=== PATIENT | male | born 1965 | race Caucasian/White ===

== ENCOUNTER 2022-08-31 13:23 | Outpatient (CLI) | payer BC, SELFPAY ==
[2022-08-31 21:32] LABS: Albumin* 4.4 g/dL (3.3-5.0); Chloride* 104 mmol/L (96-114); Potassium* 3.9 mmol/L (3.6-5.1); Sodium* 142 mmol/L (135-149)
[2022-08-31 21:34] LABS: Cholesterol* 194 mg/dL (90-199); Creatinine* 1.6 mg/dL (0.5-1.5); Estimated Glomerular Filt Rate 49 ml/min
[2022-08-31 21:35] LABS: Alanine Aminotransferase* 21 U/L (4-50); Alkaline Phosphatase* 105 U/L (40-150); Aspartate Amino Transferase* 25 U/L (12-35); Bilirubin Total* 0.8 mg/dL (0.1-1.5); Blood Urea Nitrogen* 22 mg/dL (7-30); Carbon Dioxide* 26 mmol/L (20-32); Glucose* 101 mg/dL (60-115); Total Protein* 6.9 g/dL (6.0-8.3); Triglycerides* 253 mg/dL (40-149)
[2022-08-31 21:36] LABS: Calcium* 8.2 mg/dL (8.4-10.6); HDL Cholesterol* 38 mg/dL (>=40); LDL Cholesterol Calculated 105 mg/dL (<100)
[2022-08-31 21:48] LABS: Microalbumin Urine 11 mg/dL
[2022-08-31 22:05] LABS: PSA Screen* 3.12 ng/mL (0.10-4.00)
[2022-09-01 04:16] LABS: Creatinine Urine 562.9 mg/dL; Microalbumin Creatinine Ratio 10 mg/g (0-30)
== END 2022-08-31 13:24 | disposition home or self-care (01) ==
PROVIDERS: PCP Family Medicine; Visit Provider Family Medicine
DX: Z00.00 Encounter for general adult medical examination without abnormal findings (principal); I10 Essential (primary) hypertension; R53.83 Other fatigue; E83.119 Hemochromatosis, unspecified; N40.0 Benign prostatic hyperplasia without lower urinary tract symptoms; N52.9 Male erectile dysfunction, unspecified
CPT/HCPCS: 80053; 80061; 82043; 82570; 84153; 87086

== ENCOUNTER 2023-02-18 08:25 | Outpatient (CLI) | payer BC, SELFPAY | END 2023-02-18 08:26 | disposition home or self-care (01) | LOC: NFLDREF 02-20 05:50 | PROVIDERS: PCP Family Medicine; Referring Provider Family Medicine; Visit Provider Family Medicine | DX: E83.119 Hemochromatosis, unspecified (principal); N40.0 Benign prostatic hyperplasia without lower urinary tract symptoms; N52.9 Male erectile dysfunction, unspecified; R53.83 Other fatigue | CPT/HCPCS: 82533; 83001; 83002; 84146; 84403 ==

== ENCOUNTER 2023-03-02 12:09 | Emergency (ER) | payer BC, SELFPAY ==
[2023-03-02] VITALS (34 sets, daily range): BP systolic 103–158; BP diastolic 63–95; PULSE 52–66; RESP 18; TEMP 36; O2SAT 92–97; BMI 34.4
--- NOTE | 2023-03-02 13:03 | ED_ITS ---
HPI - General Adult General Chief complaint: Weakness Stated complaint: Heart issues, disoriented Time Seen by Provider: 03/02/23 12:38 History of Present Illness HPI narrative: This 57-year-old male comes in from clinic. He presented to the [facility] because of extreme fatigue and generalized weakness. 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 This is a typical workday for him. He was fatigued at the end of the day and this continues into today. He did not have any nausea, vomiting Related Data Home Medications Medication Instructions Recorded Confirmed hydroxyzine pamoate 25 mg capsule 25 mg PO QID 03/02/23 03/02/23 Previous Rx's Medication Instructions Recorded duloxetine 60 mg capsule,delayed 60 mg PO QDAY #90 caps 09/01/22 release gabapentin 300 mg capsule 300 mg PO QID PRN neuropathic pain 09/01/22 #360 caps lisinopril 40 mg tablet 40 mg PO QDAY #90 tabs 09/01/22 metoprolol succinate 100 mg 100 mg PO QDAY #90 tabs 09/01/22 tablet,extended release 24 hr amlodipine 10 mg tablet 10 mg PO QDAY #90 tabs 02/17/23 testosterone cypionate 100 mg/mL 100 mg IM Q2W #10 mL 02/24/23 intramuscular oil (Depo-Testosterone) Allergies Allergy/AdvReac Type Severity Reaction Status Date / Time No Known Allergies Allergy Unknown Verified 03/02/23 10:15 [facility] Medical History (Updated 03/02/23 @ 17:45 by Kevin Crawford MD) Confusion ?R41.0 - Disorientation, unspecified (ICD-10) Diverticulosis of intestine ?K57.90 - Diverticulosis of intestine, part unspecified, without perforation or abscess without bleeding (ICD-10) Exposure to severe acute respiratory syndrome coronavirus 2 (SARS-CoV-2) ?Z20.822 - Contact with and (suspected) exposure to COVID-19 (ICD-10) History of fracture (2004) ?Z87.81 - Personal history of (healed) traumatic fracture (ICD-10) Lightheaded ?R42 - Dizziness and giddiness (ICD-10) Methicillin resistant Staphylococcus aureus infection (07/16/10) ?A49.02 - Methicillin resistant Staphylococcus aureus infection, unspecified site (ICD-10) Surgical History (Updated 05/05/22 @ 12:28 by Nam Lam) History of arthroscopy (1998) ?Z98.890 - Other specified postprocedural states (ICD-10) History of colonoscopy ?Z98.890 - Other specified postprocedural states (ICD-10) History of endoscopy (03/2009) ?Z98.890 - Other specified postprocedural states (ICD-10) Status post cholecystectomy ?Z90.49 - Acquired absence of other specified parts of digestive tract (ICD- 10) Social History Smoking Status: Current every day smoker What tobacco products do you use: cigarettes Smoking packs per day: 1 Smoking cigarettes per day: 20.0 Years smoked: 47 Smoking pack-years: 47.00 Do you use any of these nicotine containing products: None Second hand tobacco smoke exposure: No How often do you have a drink containing alcohol: monthly or less How many standard drinks containing alcohol do you have on a typical day: 1 or 2 How often do you have six or more drinks on one occasion: Less than monthly AUDIT-C Alcohol total score: 2 Non-prescribed substance use: denies use Little interest or pleasure in doing things: not at all Feeling down, depressed, or hopeless: not at all service: No Exam Const: Vital Signs, click to edit/add: Vital Signs - 24 hr 03/02/23 12:19 03/02/23 12:32 03/02/23 12:33 Temperature 96.8 F L Pulse Rate 61 65 Pulse Rate [Pulse Oximeter] 61 Respiratory Rate 18 Blood Pressure 144/94 H Blood Pressure [Le ft Upper Arm] 158/91 H Pulse Oximetry 97 96 95 Oxygen Delivery Me thod Room Air 03/02/23 12:45 03/02/23 13:00 03/02/23 13:02 Temperature Pulse Rate 60 62 66 Pulse Rate [Pulse Oximeter] Respiratory Rate Blood Pressure 141/95 H Blood Pressure [Le ft Upper Arm] Pulse Oximetry 94 96 96 Oxygen Delivery Me thod 03/02/23 13:15 03/02/23 13:30 03/02/23 13:32 Temperature Pulse Rate 63 61 57 L Pulse Rate [Pulse Oximeter] Respiratory Rate Blood Pressure 113/69 Blood Pressure [Le ft Upper Arm] Pulse Oximetry 95 95 93 Oxygen Delivery Me thod 03/02/23 13:33 03/02/23 13:45 03/02/23 14:00 Temperature Pulse Rate 59 L 56 L 56 L Pulse Rate [Pulse Oximeter] Respiratory Rate Blood Pressure Blood Pressure [Le ft Upper Arm] Pulse Oximetry 93 92 93 Oxygen Delivery Me thod 03/02/23 14:01 03/02/23 14:15 03/02/23 14:30 Temperature Pulse Rate 56 L 57 L 59 L Pulse Rate [Pulse Oximeter] Respiratory Rate Blood Pressure 103/73 Blood Pressure [Le ft Upper Arm] Pulse Oximetry 92 92 93 Oxygen Delivery Me thod 03/02/23 14:32 03/02/23 14:33 03/02/23 14:45 Temperature Pulse Rate 55 L 53 L 53 L Pulse Rate [Pulse Oximeter] Respiratory Rate Blood Pressure 123/76 Blood Pressure [Le ft Upper Arm] Pulse Oximetry 92 94 94 Oxygen Delivery Me thod 03/02/23 15:00 03/02/23 15:02 03/02/23 15:15 Temperature Pulse Rate 63 60 56 L Pulse Rate [Pulse Oximeter] Respiratory Rate Blood Pressure 114/76 Blood Pressure [Le ft Upper Arm] Pulse Oximetry 95 95 95 Oxygen Delivery Me thod 03/02/23 15:30 03/02/23 15:31 03/02/23 15:45 Temperature Pulse Rate 63 58 L 64 Pulse Rate [Pulse Oximeter] Respiratory Rate Blood Pressure 120/63 Blood Pressure [Le ft Upper Arm] Pulse Oximetry 97 96 96 Oxygen Delivery Me thod 03/02/23 16:00 03/02/23 16:02 03/02/23 16:15 Temperature Pulse Rate 61 59 L 54 L Pulse Rate [Pulse Oximeter] Respiratory Rate Blood Pressure 136/87 Blood Pressure [Le ft Upper Arm] Pulse Oximetry 96 95 95 Oxygen Delivery Me thod 03/02/23 16:30 03/02/23 16:32 03/02/23 16:33 Temperature Pulse Rate 52 L 52 L 53 L Pulse Rate [Pulse Oximeter] Respiratory Rate Blood Pressure 127/80 Blood Pressure [Le ft Upper Arm] Pulse Oximetry 95 92 94 Oxygen Delivery Me thod 03/02/23 16:45 03/02/23 17:00 03/02/23 17:02 Temperature Pulse Rate 53 L 59 L 55 L Pulse Rate [Pulse Oximeter] Respiratory Rate Blood Pressure 139/82 Blood Pressure [Le ft Upper Arm] Pulse Oximetry 95 96 95 Oxygen Delivery Me thod 03/02/23 17:15 Temperature Pulse Rate 60 Pulse Rate [Pulse Oximeter] Respiratory Rate Blood Pressure Blood Pressure [Le ft Upper Arm] Pulse Oximetry 96 Oxygen Delivery Me thod Course Vital Signs Vital signs: Initial Vital Signs Temperature 96.8 F L 03/02/23 12:19 Temperature Source Temporal Artery Scan 03/02/23 12:19 Pulse Rate 61 03/02/23 12:19 Pulse Rhythm Regular 03/02/23 12:19 Respiratory Rate 18 03/02/23 12:19 Blood Pressure 158/91 H 03/02/23 12:19 Blood Pressure Mean 113 H 03/02/23 12:19 Blood Pressure Position Supine 03/02/23 12:19 Pulse Oximetry 97 03/02/23 12:19 Oxygen Delivery Method Room Air 03/02/23 12:19 Vital Signs Temperature 96.8 F L 03/02/23 12:19 Pulse Rate 61 03/02/23 12:19 Respiratory Rate 18 03/02/23 12:19 Blood Pressure 158/91 H 03/02/23 12:19 Pulse Oximetry 97 03/02/23 12:19 Oxygen Delivery Method Room Air 03/02/23 12:19 Temperature 96.8 F L 03/02/23 12:19 Pulse Rate 60 03/02/23 17:15 Respiratory Rate 18 03/02/23 12:19 Blood Pressure 139/82 03/02/23 17:02 Pulse Oximetry 96 03/02/23 17:15 Oxygen Delivery Method Room Air 03/02/23 12:19 Medical Decision Making MDM Narrative Medical decision making narrative: This 57-year-old male comes in for evaluation stating that he feels especially tired since last night. He did not report any chest pain. He does state a history of coronary artery disease and had an angiogram about 6 or 8 years ago. There were no stents placed but he states that there was some narrowing of his coronary arteries that were ballooned apparently. He had distinct chest pain at that time but denies having any chest pain related to exertion or otherwise currently. He states that he is continuing to smoke but has been trying to quit and has been cutting back as best as he can. 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 This is vigorous physical labor and he states that he has been tolerating this until last evening when he felt especially tired. He arrives here with EKG that shows no specific abnormalities. His troponin returns at an indeterminate level at 0.06. A repeat troponin is acquired about 3 hours later and is similar at 0.07. Meanwhile the patient has not had any chest pain and in fact is stating that he feels quite a bit better as he is rested here during these several hours present here. Repeat EKG also shows no sign of ST or T-wave abnormalities specifically. I did discuss options going forward including observation in the hospital and outpatient testing such as stress testing or echocardiogram. The patient states that he wishes to return home and does have a follow-up appointment for a CT scan of his chest tomorrow. I stated that he should consider a stress test and have this arranged at that appointment tomorrow. Most likely his troponin in these intermediate level range is not indicating a acute coronary event as his symptoms began last evening. More likely this is some demand ischemia. I did describe signs and symptoms that would indicate a need for return and re- evaluation. Lab Data Labs: Lab Results 03/02/23 03/02/23 Range/Units 13:20 15:35 Troponin I 0.06 H* 0.07 H* (0.01-0.04) ng/mL NT-Pro-B Natriuret Pep 567 pg/mL ECG Data Attestation: I personally reviewed and interpreted this ECG as follows: Interpretation: Normal sinus rhythm. Rate is 62 beats per minute. There are no ST or T-wave abnormalities. Possible Q-waves in inferior leads. Discharge Plan Discharge Clinical Impression: Fatigue Patient Disposition: Home, Self-Care Condition: Improved Additional Instructions: Continue current plans. Follow up with MD tomorrow as scheduled. Smoking cessation is recommended. Take a baby aspirin daily. Return if worsening. Prescriptions: No Action amlodipine 10 mg tablet 10 mg PO QDAY Qty: 90 1RF hydroxyzine pamoate 25 mg capsule 25 mg PO QID duloxetine 60 mg capsule,delayed release(DR/EC) 60 mg PO QDAY Qty: 90 3RF gabapentin 300 mg capsule 300 mg PO QID PRN (Reason: neuropathic pain) Qty: 360 3RF lisinopril 40 mg tablet 40 mg PO QDAY Qty: 90 3RF metoprolol succinate 100 mg tablet extended release 24 hr 100 mg PO QDAY Qty: 90 3RF testosterone cypionate [Depo-Testosterone] 100 mg/mL oil 100 mg IM Q2W Qty: 10 0RF Follow Up/Referrals: Ele Kim DO [Primary Care Provider] - Stand Alone Forms: [employer] Info Instructions
[2023-03-02 14:15] LABS: NT Pro B Type NatriureticPept* 567 pg/mL; Troponin I* 0.06 ng/mL (0.01-0.04)
--- NOTE | 2023-03-02 15:54 | ED.NURSE ---
Pt c/o discomfort on L arm at IV site. IV flushed, patent. Pt c/o continued pain at IV site, entry writer dc'd IV, catheter intact. Manager Metrology observed that orange tourniquet band was still in place on pt L arm above IV site, underneath gown sleeve. Tourniquet band removed by entry writer. CMS of left arm and left hand assessed, CMS intact. Pulse oximeter was on left hand throughout stay, readings have been normal. MD Crawford notified of tourniquet removal.
[2023-03-02 17:00] LABS: Troponin I* 0.07 ng/mL (0.01-0.04)
== END 2023-03-02 18:00 | disposition home or self-care (01) ==
PROVIDERS: Emergency Provider Emergency Medicine Emergency Medical Services; PCP Family Medicine
DX: R53.83 Other fatigue (principal)
CPT/HCPCS: 36415; 83880; 84484; 93005; 99284

== ENCOUNTER 2023-03-03 10:47 | Outpatient (CLI) | payer BC, SELFPAY | END 2023-03-03 10:48 | disposition home or self-care (01) | PROVIDERS: PCP Family Medicine; Visit Provider Family Medicine | DX: R53.83 Other fatigue (principal); R42 Dizziness and giddiness; E29.1 Testicular hypofunction; N18.30 Chronic kidney disease, stage 3 unspecified | CPT/HCPCS: 84145 ==

== ENCOUNTER 2023-03-04 15:49 | Outpatient (CLI) | payer BC, SELFPAY ==
--- NOTE | 2023-03-04 16:00 | CRLHL7_ITS ---
For Patients: As a result of the Century Cures Act, medical imaging exams and procedure reports are released immediately into your electronic medical record. You may view this report before your referring provider. If you have questions, please contact your health care provider. INDICATION: Fatigue. Hypertension. Cerebrovascular accident evaluation. TECHNIQUE: Noncontrast CT images acquired through the brain. COMPARISON: None. FINDINGS: The ventricles and sulci are within normal limits for patient age. No mass effect or midline shift. The silverman-white differentiation is maintained. No acute intracranial hemorrhage or pathologic extra-axial fluid collection. Scattered and patchy hypoattenuation in the supratentorial white matter is nonspecific, though most suggestive of [id number] chronic microvascular ischemic changes. Chronic lacunar infarction posterior medial right cerebellar hemisphere. Intracranial atherosclerotic calcifications in the carotid siphons and vertebral arteries. The globes are symmetric. The calvarium is intact. The visualized paranasal sinuses and mastoid air cells are clear. IMPRESSION: 1. No acute intracranial hemorrhage or mass effect. 2. Chronic lacunar infarction posterior right cerebellar hemisphere. 3. Scattered and patchy hypoattenuation in the supratentorial white matter is nonspecific, though most suggestive of [id number] chronic microvascular ischemic changes. Please note that all CT scans at this facility use dose modulation, iterative reconstruction, and/or weight-based dosing when appropriate to reduce radiation dose to as low as reasonably achievable. Dictated by Brando Michel MD @ 03/04/2023 4:42:26 PM (Electronically Signed)
--- NOTE | 2023-03-04 16:00 | CRLHL7_ITS ---
For Patients: As a result of the Century Cures Act, medical imaging exams and procedure reports are released immediately into your electronic medical record. You may view this report before your referring provider. If you have questions, please contact your health care provider. INDICATION: Lung cancer screening. History of smoking. High risk patient with greater than 37 pack-year smoking history. TECHNIQUE: Low-dose lung cancer screening non-contrast CT chest. Dose reduction techniques were used. COMPARISON: None. FINDINGS: NODULES: Noncalcified nodule measuring 3.9 millimeters, left lower lobe, series 10, image 89. LUNGS AND PLEURA: Normal. MEDIASTINUM: No adenopathy. Atherosclerotic changes in the aorta. CORONARY ARTERY CALCIFICATION: Severe coronary artery calcifications. LIMITED UPPER ABDOMEN: 1.5 cm benign right adrenal adenoma. Cystic change upper pole right kidney suspected. MUSCULOSKELETAL: Bilateral gynecomastia. IMPRESSION: 1. Negative for lung cancer screening purposes. 2. Probable cystic change upper pole right kidney. LUNG-RADS CATEGORY: 2: Benign. RADIOLOGIST RECOMMENDATION: Continue annual screening with low-dose CT chest in 12 months. Renal ultrasound recommended. Please note that all CT scans at this facility use dose modulation, iterative reconstruction, and/or weight-based dosing when appropriate to reduce radiation dose to as low as reasonably achievable. Dictated by Jatin Shaikh MD @ 03/06/2023 8:26:56 PM (Electronically Signed)
== END 2023-03-04 15:50 | disposition home or self-care (01) ==
LOC: CT 15:49
PROVIDERS: PCP Family Medicine; Visit Provider Family Medicine
DX: Z12.2 Encounter for screening for malignant neoplasm of respiratory organs (principal); Z87.891 Personal history of nicotine dependence; R53.83 Other fatigue; I63.9 Cerebral infarction, unspecified; R41.0 Disorientation, unspecified; R42 Dizziness and giddiness; I10 Essential (primary) hypertension
CPT/HCPCS: 70450; 71271

== ENCOUNTER 2023-11-09 13:48 | Emergency (ER) | payer BC, SELFPAY ==
[2023-11-09] VITALS (36 sets, daily range): BP systolic 143–184; BP diastolic 89–126; PULSE 64–98; RESP 16; TEMP 36.3; O2SAT 89–97; BMI 35.4
--- NOTE | 2023-11-09 14:35 | ED_ITS ---
HPI - General Adult General Chief complaint: Neuro Symptoms/Altered Deficit <Vitaliy Bartlett MD - Last Filed: 11/12/23 08:33> Stated complaint: dizzy, confusion, weak <Vitaliy Bartlett MD - Last Filed: 11/12/23 08:33> Time Seen by Provider: 11/09/23 14:24 <Vitaliy Bartlett MD - Last Filed: 11/12/23 08:33> History of Present Illness HPI narrative: [age] year old white male who has tried to quit smoking since the has had some side effects perhaps from nicotine withdrawal and the form of shakiness con of confusion dizziness he has had some upset stomach. He specifically denies chest pain breathing issue although he does state he has had chronic wheezing and breathing difficulty since he had COVID last couple months ago. He reports he has had a balloon angioplasty in the past, he reports he has had anxiety and depression, he is smoking up until the . He reports he has hemochromatosis in requesting some labs for that as well. He denies chest pain as mentioned does feel short of breath with exertion and he has had this for few weeks since his COVID. He still coughing some. He does feel he is making progress in his better. He denies leg swelling or edema. He has had some nausea as well and he has vomited once. He is asking for some Nicoderm patches as he has some called in from his doctor and I think that would be reasonable given that he has an EKG that shows normal sinus rhythm no acute ST T wave changes he does have some artifact present but I do not see any ischemic change. <Vitaily Bartlett MD - Last Filed: 11/12/23 08:33> Related Data Home medications: Previous Rx's Medication Instructions Recorded testosterone cypionate 100 mg/mL 100 mg IM Q2W #10 mL 03/23/23 intramuscular oil carvedilol 12.5 mg tablet 12.5 mg PO BID #180 tabs 07/07/23 syringe with needle, safety 3 mL #100 ea 07/27/23 22 gauge x 1 1/2 (BD Integra Syringe) syringe with needle, safety 3 mL #100 ea 07/27/23 22 gauge x 1 1/2 (BD Integra Syringe) amlodipine 10 mg tablet 10 mg PO DAILY #90 tabs 08/17/23 duloxetine 60 mg capsule,delayed 60 mg PO QDAY #90 caps 08/17/23 release lisinopril 40 mg tablet 40 mg PO QDAY #90 tabs 08/17/23 rosuvastatin 20 mg tablet 20 mg PO QPM #90 tabs 08/17/23 albuterol sulfate 90 mcg/actuation 1 inh inhalation QID PRN shortness 11/09/23 aerosol inhaler of breath or wheezing #8.5 grams nicotine 21 mg/24 hr daily 1 patch transdermal Q24H #28 ea 11/09/23 transdermal patch prednisone 20 mg tablet 40 mg (2 x 20 mg) PO DAILY 5 days 11/09/23 #10 tabs gabapentin 300 mg capsule 300 mg PO BID #180 caps 11/10/23 <Vitaliy Bartlett MD - Last Filed: 11/12/23 08:33> Allergies/adverse reactions: Allergies Allergy/AdvReac Type Severity Reaction Status Date / Time No Known Allergies Allergy Unknown Verified 11/09/23 18:47 <Vitaliy Bartlett MD - Last Filed: 11/12/23 08:33> Review of Systems Status of ROS: Reports: 6 or more systems reviewed and unremarkable except as noted in History and below <Vitaliy Bartlett MD - Last Filed: 11/12/23 08:33> [facility] Medical History: Medical History Confusion ?R41.0 - Disorientation, unspecified (ICD-10) Methicillin resistant Staphylococcus aureus infection (07/16/10) ?A49.02 - Methicillin resistant Staphylococcus aureus infection, unspecified site (ICD-10) History of fracture (2004) ?Z87.81 - Personal history of (healed) traumatic fracture (ICD-10) Exposure to severe acute respiratory syndrome coronavirus 2 (SARS-CoV-2) ?Z20.822 - Contact with and (suspected) exposure to COVID-19 (ICD-10) Diverticulosis of intestine ?K57.90 - Diverticulosis of intestine, part unspecified, without perforation or abscess without bleeding (ICD-10) <Vitaliy Bartlett MD - Last Filed: 11/12/23 08:33> Surgical History: Surgical History Status post cholecystectomy ?Z90.49 - Acquired absence of other specified parts of digestive tract (ICD- 10) History of endoscopy (03/2009) ?Z98.890 - Other specified postprocedural states (ICD-10) History of colonoscopy ?Z98.890 - Other specified postprocedural states (ICD-10) History of arthroscopy (1998) ?Z98.890 - Other specified postprocedural states (ICD-10) <Vitlaiy Bartlett MD - Last Filed: 11/12/23 08:33> Social History: Social History (Updated 11/10/23 @ 00:55 by Kyle Cai MD) Smoking Status: Former smoker What tobacco products do you use: cigarettes Smoking packs per day: 1 Smoking cigarettes per day: 20.0 Years smoked: 47 Smoking pack-years: 47.00 Smoking quit date/years: <= 15 years ago Do you use any of these nicotine containing products: Smokeless Tobacco Second hand tobacco smoke exposure: No How often do you have a drink containing alcohol: monthly or less How many standard drinks containing alcohol do you have on a typical day: 1 or 2 How often do you have six or more drinks on one occasion: Less than monthly AUDIT-C Alcohol total score: 2 Non-prescribed substance use: denies use Little interest or pleasure in doing things: not at all Feeling down, depressed, or hopeless: not at all service: No <Vitaliy Bartlett MD - Last Filed: 11/12/23 08:33> Exam Narrative: Exam Narrative: Objective: Vital signs show slightly elevated blood pressure, he is afebrile, O2 sat is excellent Telemetry looks like normal sinus rhythm Alert orient x3 noncyanotic not working to breathe HEENT is unremarkable Chest is diminished air exchange bilaterally no rales or wheezing Heart rhythm regular 2/6 systolic murmur Extremities are no edema neurologic nonfocal Abdomen benign Normal neurologic function, strength sensation extremities <Vitaliy Bartlett MD - Last Filed: 11/12/23 08:33> Const: Vital Signs, click to edit/add: Vital Signs - 24 hr 11/09/23 14:07 11/09/23 14:20 11/09/23 14:21 Temperature 97.3 F L Pulse Rate 77 74 Pulse Rate [Pulse Oximeter] 78 Respiratory Rate 16 16 Blood Pressure 153/93 H Blood Pressure [Ri ght Upper Arm] 145/89 H Pulse Oximetry 97 96 97 Oxygen Delivery Me thod Room Air 11/09/23 14:22 11/09/23 14:30 11/09/23 14:31 Temperature Pulse Rate 71 76 74 Pulse Rate [Pulse Oximeter] Respiratory Rate 16 Blood Pressure 143/94 H Blood Pressure [Ri ght Upper Arm] Pulse Oximetry 96 96 95 Oxygen Delivery Me thod 11/09/23 14:45 11/09/23 15:04 11/09/23 15:09 Temperature Pulse Rate 76 71 Pulse Rate [Pulse Oximeter] Respiratory Rate Blood Pressure Blood Pressure [Ri ght Upper Arm] Pulse Oximetry 96 95 96 Oxygen Delivery Me thod 11/09/23 15:15 11/09/23 15:30 11/09/23 15:32 Temperature Pulse Rate 68 69 64 Pulse Rate [Pulse Oximeter] Respiratory Rate Blood Pressure 149/126 H Blood Pressure [Ri ght Upper Arm] Pulse Oximetry 97 94 95 Oxygen Delivery Me thod 11/09/23 15:37 11/09/23 15:45 11/09/23 16:00 Temperature Pulse Rate 68 67 75 Pulse Rate [Pulse Oximeter] Respiratory Rate Blood Pressure 156/101 H Blood Pressure [Ri ght Upper Arm] Pulse Oximetry 96 95 96 Oxygen Delivery Me thod 11/09/23 16:01 11/09/23 16:32 11/09/23 16:51 Temperature Pulse Rate 78 Pulse Rate [Pulse Oximeter] Respiratory Rate Blood Pressure 154/92 H 156/91 H Blood Pressure [Ri ght Upper Arm] Pulse Oximetry 95 Oxygen Delivery Me thod 11/09/23 17:00 11/09/23 17:01 11/09/23 17:15 Temperature Pulse Rate 68 68 64 Pulse Rate [Pulse Oximeter] Respiratory Rate Blood Pressure 158/98 H Blood Pressure [Ri ght Upper Arm] Pulse Oximetry 94 94 96 Oxygen Delivery Me thod 11/09/23 17:30 11/09/23 17:32 11/09/23 17:45 Temperature Pulse Rate 71 65 66 Pulse Rate [Pulse Oximeter] Respiratory Rate Blood Pressure 152/107 H Blood Pressure [Ri ght Upper Arm] Pulse Oximetry 94 93 89 Oxygen Delivery Me thod 11/09/23 19:01 11/09/23 19:09 11/09/23 19:15 Temperature Pulse Rate 72 72 Pulse Rate [Pulse Oximeter] Respiratory Rate Blood Pressure 182/112 H Blood Pressure [Ri ght Upper Arm] Pulse Oximetry 95 96 Oxygen Delivery Me thod 11/09/23 19:30 11/09/23 19:32 11/09/23 19:45 Temperature Pulse Rate 72 72 71 Pulse Rate [Pulse Oximeter] Respiratory Rate Blood Pressure 168/107 H Blood Pressure [Ri ght Upper Arm] Pulse Oximetry 94 95 93 Oxygen Delivery Me thod 11/09/23 20:00 11/09/23 20:02 11/09/23 20:15 Temperature Pulse Rate 74 71 70 Pulse Rate [Pulse Oximeter] Respiratory Rate Blood Pressure 171/104 H Blood Pressure [Ri ght Upper Arm] Pulse Oximetry 94 93 93 Oxygen Delivery Me thod 11/09/23 20:30 11/09/23 20:32 11/09/23 20:45 Temperature Pulse Rate 98 83 83 Pulse Rate [Pulse Oximeter] Respiratory Rate 16 Blood Pressure 184/111 H Blood Pressure [Ri ght Upper Arm] Pulse Oximetry 94 96 96 Oxygen Delivery Me thod <Vitaliy Bartlett MD - Last Filed: 11/12/23 08:33> Vital Signs, click to edit/add: Vital Signs - 24 hr 11/09/23 14:07 11/09/23 14:20 11/09/23 14:21 Temperature 97.3 F L Pulse Rate 77 74 Pulse Rate [Pulse Oximeter] 78 Respiratory Rate 16 16 Blood Pressure 153/93 H Blood Pressure [Ri ght Upper Arm] 145/89 H Pulse Oximetry 97 96 97 Oxygen Delivery Me thod Room Air 11/09/23 14:22 11/09/23 14:30 11/09/23 14:31 Temperature Pulse Rate 71 76 74 Pulse Rate [Pulse Oximeter] Respiratory Rate 16 Blood Pressure 143/94 H Blood Pressure [Ri ght Upper Arm] Pulse Oximetry 96 96 95 Oxygen Delivery Me thod 11/09/23 14:45 11/09/23 15:04 11/09/23 15:09 Temperature Pulse Rate 76 71 Pulse Rate [Pulse Oximeter] Respiratory Rate Blood Pressure Blood Pressure [Ri ght Upper Arm] Pulse Oximetry 96 95 96 Oxygen Delivery Me thod 11/09/23 15:15 11/09/23 15:30 11/09/23 15:32 Temperature Pulse Rate 68 69 64 Pulse Rate [Pulse Oximeter] Respiratory Rate Blood Pressure 149/126 H Blood Pressure [Ri ght Upper Arm] Pulse Oximetry 97 94 [facility] 15:37 11/09/23 15:45 11/09/23 16:00 Temperature Pulse Rate 68 67 75 Pulse Rate [Pulse Oximeter] Respiratory Rate Blood Pressure 156/101 H Blood Pressure [Ri ght Upper Arm] Pulse Oximetry 96 95 96 [facility] 11/09/23 16:01 11/09/23 16:32 11/09/23 16:51 Temperature Pulse Rate 78 Pulse Rate [Pulse Oximeter] Respiratory Rate Blood Pressure 154/92 H 156/91 H Blood Pressure [Ri ght Upper Arm] Pulse Oximetry 95 [facility] 11/09/23 17:00 11/09/23 17:01 11/09/23 17:15 Temperature Pulse Rate 68 68 64 Pulse Rate [Pulse Oximeter] Respiratory Rate Blood Pressure 158/98 H Blood Pressure [Ri ght Upper Arm] Pulse Oximetry 94 94 96 [facility] 11/09/23 17:30 11/09/23 17:32 11/09/23 17:45 Temperature Pulse Rate 71 65 66 Pulse Rate [Pulse Oximeter] Respiratory Rate Blood Pressure 152/107 H Blood Pressure [Ri ght Upper Arm] Pulse Oximetry 94 93 89 [facility] 11/09/23 19:01 11/09/23 19:09 11/09/23 19:15 Temperature Pulse Rate 72 72 Pulse Rate [Pulse Oximeter] Respiratory Rate Blood Pressure 182/112 H Blood Pressure [Ri ght Upper Arm] Pulse Oximetry 95 96 [facility] 11/09/23 19:30 11/09/23 19:32 11/09/23 19:45 Temperature Pulse Rate 72 72 71 Pulse Rate [Pulse Oximeter] Respiratory Rate Blood Pressure 168/107 H Blood Pressure [Ri ght Upper Arm] Pulse Oximetry 94 95 93 [facility] 11/09/23 20:00 11/09/23 20:02 11/09/23 20:15 Temperature Pulse Rate 74 71 70 Pulse Rate [Pulse Oximeter] Respiratory Rate Blood Pressure 171/104 H Blood Pressure [Ri ght Upper Arm] Pulse Oximetry 94 93 93 [facility] 11/09/23 20:30 11/09/23 20:32 11/09/23 20:45 Temperature Pulse Rate 98 83 83 Pulse Rate [Pulse Oximeter] Respiratory Rate 16 Blood Pressure 184/111 H Blood Pressure [Ri ght Upper Arm] Pulse Oximetry 94 96 96 Oxygen Delivery Me thod <Kyle Cai MD - Last Filed: 11/10/23 00:55> Course Course ED Course: Dr. Cai assumed care at about 4:15 p.m.-shift change. Patient signed out to me pending a repeat troponin. Initial troponin mildly abnormal but likely not high enough to represent ACS. If next troponin is unchanging, with discharge home. Dr. Quinonez suspects probably nicotine withdrawal causing his symptoms. Second troponin came back stable at 0.07. I recheck the patient and repeated a history and physical exam. HPI: Patient is 58. He has a long-term smoker taking dating back over 40 years. He also has a history of coronary disease and had an angioplasty done about 10 or 15 years ago (at a hospital [facility] the [facility], [facility] He has had long-term follow-up with [facility] and had a visit with them last year. Apparently is heart is been stable since then. He has not had any follow-up stress tests or angiograms. He does have high blood pressure and is on carvedilol. He has never been formally diagnosed with COPD but does have wheezing from time to time and has had had to take albuterol inhalers in the past. He has a history of hypogonadism. He has been meaning to follow-up with his primary care provider for outpatient testosterone testing, but has not done it lately. He also has a history of hemochromatosis. He notes some shortness of breath dating back for years, which he attributes to smoking. He had coronavirus in mid September that apparently caused pretty significant trouble with his breathing and chest tightness, but he was not hos pitalized. Ever since then he has been a little bit more short of breath and his long-term baseline. On 's weekend, he made the resolution to quit smoking so stopped smoking on November 05, 4 days ago. He has had a productive cough this week since he quit smoking. No fever. No chest pain. This morning when he woke up from bed to let his dogs out he noted significant spinning vertigo as well as ataxia and falling to his left. He was pretty unsteady and dizzy and nauseous and went back to bed. When he woke up again later in the morning he was still spinning and unsteady but not as nauseous. Since he has been here in the ER this afternoon his vertigo is largely now resolved. He is able to walk in feels essentially back to normal. He did not have any diplopia. No headache. No unilateral numbness or weakness. He did not have any chest pain today. No palpitations. He does feel more short of breath than baseline. He has not had any recent new swelling in his legs but he has been dealing with bilateral lower extremity peripheral edema for the past 2 years. His primary care provider has been trying to adjust his blood pressure meds to deal with that edema. His edema is stable lately and not worse than baseline. No asymmetric edema. He is on lisinopril 40 mg daily, carvedilol 12.5 mg b.i.d., amlodipine 10 mg daily. He is not on a diuretic. He does not take any blood thinners. While in the ER earlier this afternoon he did receive 324 mg of chewed oral aspirin. Physical exam Constitutional: Appears well-developed and well-nourished. Alert. Conversant and polite. He has a pretty detailed historian.. Non toxic. HENT: Head: Atraumatic. Nose: Nose normal. Mouth/Throat: Oral mucosa is clear and moist. no trismus. Pharynx normal. Tonsils symmetric. No tonsillar enlargement, erythema, or exudate. Eyes: Conjunctivae normal. EOM normal. Pupils equal, round, and reactive to light. No scleral icterus. No nystagmus. Neck: Normal range of motion. Neck supple. No tracheal deviation present. No JVD. Cardiovascular: Normal rate, regular rhythm. No gallop. No friction rub. No murmur heard. Symmetric radial artery pulses Pulmonary/Chest: Effort normal. No stridor. No respiratory distress. Bilateral wheezes. No rales. No rhonchi . No tenderness. Abdominal: Soft. Bowel sounds normal. No distension. No mass. No tenderness. No rebound. No guarding. Musculoskeletal: RUE: Normal range of motion. No tenderness. No deformity LUE: Normal range of motion. No tenderness. No deformity RLE: Normal range of motion. No edema. No tenderness. No deformity LLE: Normal range of motion. No edema. No tenderness. No deformity Lymph: No cervical adenopathy. Neurological: Mental status normal. Attention normal. Alert and oriented x3. GCS 15. Memory normal. Speech fluent. Cognition normal. Cranial Nerves intact II-XII except I did not formally test gag or visual acuity. EOMI. Palate elevates symmetrically and tongue protrudes in the midline. Strength: 5/5 trapezius on the right and left 5/5 deltoid on the right and left 5/5 biceps on the right and left 5/5 triceps on the right and left 5/5 coil winding machines set up mechanic on the right and left 5/5 thumb opposition on the right and left 5/5 finger abduction on the right and left 5/5 hip flexors (L3) on the right and left 5/5 quadriceps (L4) on the right and left 5/5 tibialis anterior on the right and left 5/5 EHL (L5) on the right and left 5/5 gastrocnemius (S1) on the right and left 5/5 hamstring on the right and left Sensation intact to light touch in both upper extremities (C4-T1) Sensation intact to light touch in Both lower extremities (L4-S1). Finger to nose and coordination normal. Gait normal. He is able to sit up at the edge of the bed and then walk in his room without any symptoms of vertigo or unsteadiness. Skin: Skin is warm and dry. No rash noted. No pallor. Normal capillary refill. Psychiatric: Normal mood. Normal affect. He is polite. Workup in the ED so far includes Electrocardiogram 1422 Normal sinus rhythm. Rate 73 AL interval 176. Normal QRS axis. No pathologic Q-waves. No ST segment elevation or depression. Nonspecific T-wave flattening lead 1, aVL, V5, V6, AVF, lead 3 QTC: 423 Chest x-ray Findings/Impression: Cardiovascular and mediastinum: Heart size and vasculature are normal in caliber and appearance. Lungs and pleural space: Lungs are clear. No sign of infiltrate or mass. No sign of pleural effusion. No pneumothorax. Bones and soft tissues: No acute findings. CT head IMPRESSION: 1. No intracranial bleed or mass effect. 2. Old lacunar infarct right cerebellum. 3. Mild nonspecific white matter disease, likely microangiopathy. WBC 8.9, hemoglobin 14.3, platelet 206 Sodium 140, potassium 3.3, chloride 106, bicarb 28, BUN 22, creatinine 1.3, glucose 159 Calcium 8.6 Venous lactate 1.5, Ferritin 250-normal Total bilirubin 1.0, AST 27, ALT 27, CRP 0.6 N terminal proBNP normal at 165 Troponin 0.07 at 1445 COVID, influenza, RSV PCR negative. Further ER workup Repeat troponin at 16:30 is abnormal but unchanged at 0.07 3rd troponin at 6:20 p.m. was unchanged at 0.07 EKG 1827 Normal sinus rhythm rate 75 AL 178 QRS axis normal axis. No pathologic Q-waves. ST segment/T wave: Nonspecific T-wave flattening V5, V6, 1, aVL but no ST segment elevation or depression. QTc: 404. CT chest PE protocol IMPRESSION: 1. No pulmonary emboli, pneumonia, or other acute intrathoracic abnormality identified. 2. 5 millimeter left lower lobe lung nodule appears slightly larger than on the previous screening chest CT of 03/04/2023. Follow-up low-dose screening CT at 12 months (late February 2024) is recommended for re-evaluation. 3. Nonacute additional findings as detailed above. MDM Discussed with the patient, his son and daughter who were present and person, and his , over the phone. 1. Cardiac= patient has a known history of coronary disease with previous angiogram a over a decade ago and risk factors for coronary disease including hypertension, overweight, tobacco use, age, gender. He has not had any recent chest pain but has had shortness of breath for the past month or so. Workup by Dr. Garrido included EKG which showed nonspecific findings but no definite ischemia and troponin were which was abnormal at 0.07. He was signed over to me pending a 2nd troponin. Second troponin was stable at 0.07 but was actually obtained less than 2 hours after the 1st. We obtained a 3rd troponin which was 4 hours after the 1st and it was still stable at 0.07, not rising. Discussed with [facility], Dr. Way. At this point we are confident that we have ruled out for acute coronary syndrome. The patient does have multiple cardiac risk factors so cardiology does think he needs an expeditious outpatient clinic follow-up with them but does not need to be admitted for further troponins, cardiac catheterization, at this time. Chest x-ray and CT did not show any evidence for CHF. BNP normal. 2. Pulmonary-patient does have a long history of smoking but just quit a couple of days ago. Patient says he does not carry a formal diagnosis of COPD, but his contradicts him in says that in fact he has been told he has [facility]. He does not use any long-term inhalers. He is wheezy on my lung exam here. Improved after DuoNeb. He is not hypoxic or severely short of breath. He is able ambulate easily in the hallway without any significant dyspnea. I think he is safe for discharge. Will put him of a 5 day course of prednisone as well as a new albuterol inhaler that he can use as needed. He is already quitting smoking. He will follow-up with his PCP for further management. The patient had COVID in September. He is negative for COVID, influenza, RSV today. Chest x-ray and CT negative for any focal infiltrate to suggest pneumonia. 3. Patient does have a 5 mm left lower lobe pulmonary nodule. Stable or slightly larger than when it was visualized on the CT from February 2023. Discussed with the patient and his family. He needs follow-up surveillance CT in February 2024. 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 4. Neuro-patient woke up this morning was having significant vertigo with ataxia, listing to the left. CT scan ordered by Dr. Garrido shows evidence for an old lacunar infarct but no other acute finding. The patient's vertigo essentially resolved while he was here in the ER. He is now ambulatory, no longer dizzy or spinning, and has no other focal deficits. Differential for his vertigo would include peripheral vertigo or labyrinthitis. Also would include central causes of vertigo. In the absence of any other neuro findings and results symptoms I do not think the patient needs to be admitted for stroke workup or MRI at this time. I wonder if his vertigo could be related to nicotine withdrawal, since he is quitting smoking? Resolved at this time. No prescriptions for home. 5. Hypertension. Patient has a known history of hypertension. Blood pressure is elevated today. However he had not been able to take his home blood pressure medications. He will take them when he arrives. At this point with no evidence for ACS related hypertension, I do not think he needs to be admitted for blood pressure control. <Kyle Cai MD - Last Filed: 11/10/23 00:55> Vital Signs Vital signs: Initial Vital Signs Temperature 97.3 F L 11/09/23 14:07 Temperature Source Temporal Artery Scan 11/09/23 14:07 Pulse Rate 78 11/09/23 14:07 Pulse Rhythm Regular 11/09/23 14:07 Pulse Strength 3+ Normal 11/09/23 14:07 Respiratory Rate 16 11/09/23 14:07 Blood Pressure 145/89 H 11/09/23 14:07 Blood Pressure Mean 107 H 11/09/23 14:07 Blood Pressure Position Sitting 11/09/23 14:07 Pulse Oximetry 97 11/09/23 14:07 Oxygen Delivery Method Room Air 11/09/23 14:07 Vital Signs Temperature 97.3 F L 11/09/23 14:07 Pulse Rate 78 11/09/23 14:07 Respiratory Rate 16 11/09/23 14:07 Blood Pressure 145/89 H 11/09/23 14:07 Pulse Oximetry 97 11/09/23 14:07 Oxygen Delivery Method Room Air 11/09/23 14:07 Temperature 97.3 F L 11/09/23 14:07 Pulse Rate 83 11/09/23 20:45 Respiratory Rate 16 11/09/23 20:32 Blood Pressure 184/111 H 11/09/23 20:32 Pulse Oximetry 96 11/09/23 20:45 Oxygen Delivery Method Room Air 11/09/23 14:07 <Vitaliy Bartlett MD - Last Filed: 11/12/23 08:33> Initial Vital Signs Temperature 97.3 F L 11/09/23 14:07 Temperature Source Temporal Artery Scan 11/09/23 14:07 Pulse Rate 78 11/09/23 14:07 Pulse Rhythm Regular 11/09/23 14:07 Pulse Strength 3+ Normal 11/09/23 14:07 Respiratory Rate 16 11/09/23 14:07 Blood Pressure 145/89 H 11/09/23 14:07 Blood Pressure Mean 107 H 11/09/23 14:07 Blood Pressure Position Sitting 11/09/23 14:07 Pulse Oximetry 97 11/09/23 14:07 Oxygen Delivery Method Room Air 11/09/23 14:07 Vital Signs Temperature 97.3 F L 11/09/23 14:07 Pulse Rate 78 11/09/23 14:07 Respiratory Rate 16 11/09/23 14:07 Blood Pressure 145/89 H 11/09/23 14:07 Pulse Oximetry 97 11/09/23 14:07 Oxygen Delivery Method Room Air 11/09/23 14:07 Temperature 97.3 F L 11/09/23 14:07 Pulse Rate 83 11/09/23 20:45 Respiratory Rate 16 11/09/23 20:32 Blood Pressure 184/111 H 11/09/23 20:32 Pulse Oximetry 96 11/09/23 20:45 Oxygen Delivery Method Room Air 11/09/23 14:07 <Kyle Cai MD - Last Filed: 11/10/23 00:55> Medications Administered Medications: Discontinued Medications Generic Name Dose Route Start Last Admin Trade Name Freq PRN Reason Stop Dose Admin Albuterol/Ipratropium 1 neb 11/09/23 18:34 11/09/23 18:42 Iprat-Albut 0.5-2.5 Mg/3 Ml Neb IH 11/09/23 18:35 1 neb ONCE ONE Administration Aspirin 324 mg 11/09/23 15:47 11/09/23 15:53 Aspirin 81 Mg Tab.Chew PO 11/09/23 15:48 324 mg ONCE ONE Administration Sodium Chloride 1,000 mls @ 6,000 mls/hr 11/09/23 14:45 11/09/23 14:56 0.9 % Sodium Chloride 1000 Ml IV 11/09/23 14:54 Infused .Q10M SPENCER Infusion Lorazepam 1 mg 11/09/23 14:32 11/09/23 14:47 Lorazepam 2 Mg/Ml Inj IVP 11/09/23 14:33 1 mg ONCE ONE Administration Methylprednisolone Sodium Succinate 40 mg 11/09/23 18:34 11/09/23 18:42 Methylprednisolone Sod Succ 40 Mg/Ml IVP 11/09/23 18:35 40 mg ONCE ONE Administration Nicotine 1 patch 11/09/23 14:45 11/09/23 15:12 Nicotine 14 Mg Patch TRANSDERMA 1 patch Q24H SPENCER Administration <Vitaliy Bartlett MD - Last Filed: 11/12/23 08:33> Discontinued Medications Generic Name Dose Route Start Last Admin Trade Name Aj PRN Reason Stop Dose Admin Albuterol/Ipratropium 1 neb 11/09/23 18:34 11/09/23 18:42 Iprat-Albut 0.5-2.5 Mg/3 Ml Neb IH 11/09/23 18:35 1 neb ONCE ONE Administration Aspirin 324 mg 11/09/23 15:47 11/09/23 15:53 Aspirin 81 Mg Tab.Chew PO 11/09/23 15:48 324 mg ONCE ONE Administration Sodium Chloride 1,000 mls @ 6,000 mls/hr 11/09/23 14:45 11/09/23 14:56 0.9 % Sodium Chloride 1000 Ml IV 11/09/23 14:54 Infused .Q10M SPENCER Infusion Lorazepam 1 mg 11/09/23 14:32 11/09/23 14:47 Lorazepam 2 Mg/Ml Inj IVP 11/09/23 14:33 1 mg ONCE ONE Administration Methylprednisolone Sodium Succinate 40 mg 11/09/23 18:34 11/09/23 18:42 Methylprednisolone Sod Succ 40 Mg/Ml IVP 11/09/23 18:35 40 mg ONCE ONE Administration Nicotine 1 patch 11/09/23 14:45 11/09/23 15:12 Nicotine 14 Mg Patch TRANSDERMA 1 patch Q24H SPENCRE Administration <Kyle Cai MD - Last Filed: 11/10/23 00:55> Medical Decision Making [facility] Narrative Medical decision making narrative: [age] year white male with multiple medical problems who presents with not feeling well, nausea, lightheadedness, foggy thinking. At this point the patient describes will could be nicotine type withdrawal. I think could be appropriate to do an x-ray, will get his chest film, I think also getting a head CT scan would be appropriate, will given some IV fluid, will give him a Nicoderm patch will check a point of care troponin, will given some Ativan to see if this is a withdrawal type reaction. He seems to time the onset to within a couple of days of him stopping smoking. Will check the above-mentioned studies disposition pending findings. He also asked recheck a ferritin and CBC in this will be done as he needs perhaps phlebotomy for his hemochromatosis in the near future. Addendum 3:37 p.m. patient had head CT done that was basically unremarkable other than old lacunar cerebellar infarct. Patient also had a chest x-ray looks unremarkable by my read. His EKG shows normal sinus rhythm some artifact present but no acute changes. White count hemoglobin are normal. ER profile shows a low normal potassium 3.3, glucose 159. CRP is negative. Point of care troponin was borderline and will run a troponin in the lab. His creatinine is 1.3. He has had a history of renal insufficiency. If troponin comes back negative I think we can let him go home with rest observation a Nicoderm patch as he has prescribed at the pharmacy from his primary care doctor follow-up with primary care to discuss further treatment options such as follow-up cardiac stress testing as I think that be reasonable idea given he had a balloon angioplasty remotely. Do not think he needs any acute care for this now, it if his troponin is within normal from lab. Addendum 3:48 p.m.: The patient has an intermediate level troponin I. I think could be appropriate to draw 1 more at 90 minute time to make sure that he has not had any change in his troponin neuro is not elevating. He does not have chest pain currently. Change of shift I asked Dr. Cai to follow up this test and determine disposition. <Vitaliy Bartlett MD - Last Filed: 11/12/23 08:33> Lab Data Labs: Lab Results 11/09/23 11/09/23 11/09/23 Range/Units 14:33 14:45 16:30 WBC 8.93 (4.50-11.00) K/uL RBC 4.10 L (4.30-5.90) m/uL Hgb 14.3 (13.5-17.5) gm/dL Hct 39.3 (37.0-53.0) % MCV 96 (80-100) fL MCH 35 H (26-34) pg MCHC 36 (32-36) gm/dL RDW Coeff of Annelise 11.9 (11.5-15.5) % Plt Count 206 (140-440) K/uL Neut % (Auto) 71.3 (42.0-72.0) % Lymph % (Auto) 17.8 L (20-44) % [place] % (Auto) 7.7 (0.0-11.0) % Eos % (Auto) 2.2 (0.0-7.0) % Baso % (Auto) 0.3 (0.0-3.0) % Neut # (Auto) 6.36 (1.7-7.0) K/uL Lymph # (Auto) 1.60 (0.90-2.90) K/uL [place] # (Auto) 0.70 (0.00-0.90) K/UL Eos # (Auto) 0.20 (0.00-0.50) K/uL Baso # (Auto) 0.03 (0.00-0.30) K/uL Abs Immat Gran (auto) 0.06 (0.00-0.30) K/uL Imm/Tot Granulo (auto) 0.7 % Sodium 140 (135-149) mmol/L Potassium 3.3 L (3.6-5.1) mmol/L Chloride 106 (96-114) mmol/L Carbon Dioxide 28 (20-32) mmol/L Anion Gap 6 L (7-15) mEq/L BUN 22 (7-30) mg/dL Creatinine 1.3 (0.5-1.5) mg/dL Estimated Creat Clear 52.56 Estimated GFR 63 ml/min Glucose 159 H (60-115) mg/dL Lactate 1.5 (0.5-1.9) mmol/L Calcium 8.6 (8.4-10.6) mg/dL Ferritin 250.0 (17.9-464.0) ng/mL Total Bilirubin 1.0 (0.1-1.5) mg/dL Direct Bilirubin 0.2 (0.0-0.5) mg/dL AST 27 (12-35) U/L ALT 27 (4-50) U/L Alkaline Phosphatase 53 (40-150) U/L Troponin I 0.07 H* 0.07 H* (0.01-0.04) ng/mL C-Reactive Protein 0.6 (0.5-1.0) mg/dL NT-Pro-B Natriuret Pep 165 pg/mL Total Protein 6.7 (6.0-8.3) g/dL Albumin 4.1 (3.3-5.0) g/dL SARS-CoV-2 (PCR) Negative SARS-CoV-2 (Negative) Influenza Type A (PCR) Negative PCR FLU A (Negative) Influenza Type B (PCR) Negative PCR FLU B (Negative) RSV (PCR) Negative PCR RSV (Negative) POC Troponin I 0.06 H (0.01-0.04) ng/ml 11/09/23 Range/Units 18:18 WBC (4.50-11.00) K/uL RBC (4.30-5.90) m/uL Hgb (13.5-17.5) gm/dL Hct (37.0-53.0) % MCV (80-100) fL MCH (26-34) pg MCHC (32-36) gm/dL RDW Coeff of Annelise (11.5-15.5) % Plt Count (140-440) K/uL Neut % (Auto) (42.0-72.0) % Lymph % (Auto) (20-44) % [place] % (Auto) (0.0-11.0) % Eos % (Auto) (0.0-7.0) % Baso % (Auto) (0.0-3.0) % Neut # (Auto) (1.7-7.0) K/uL Lymph # (Auto) (0.90-2.90) K/uL [place] # (Auto) (0.00-0.90) K/UL Eos # (Auto) (0.00-0.50) K/uL Baso # (Auto) (0.00-0.30) K/uL Abs Immat Gran (auto) (0.00-0.30) K/uL Imm/Tot Granulo (auto) % Sodium (135-149) mmol/L Potassium (3.6-5.1) mmol/L Chloride (96-114) mmol/L Carbon Dioxide (20-32) mmol/L Anion Gap (7-15) mEq/L BUN (7-30) mg/dL Creatinine (0.5-1.5) mg/dL Estimated Creat Clear Estimated GFR ml/min Glucose (60-115) mg/dL Lactate (0.5-1.9) mmol/L Calcium (8.4-10.6) mg/dL Ferritin (17.9-464.0) ng/mL Total Bilirubin (0.1-1.5) mg/dL Direct Bilirubin (0.0-0.5) mg/dL AST (12-35) U/L ALT (4-50) U/L Alkaline Phosphatase (40-150) U/L Troponin I 0.07 H* (0.01-0.04) ng/mL C-Reactive Protein (0.5-1.0) mg/dL NT-Pro-B Natriuret Pep pg/mL Total Protein (6.0-8.3) g/dL Albumin (3.3-5.0) g/dL SARS-CoV-2 (PCR) (Negative) Influenza Type A (PCR) (Negative) Influenza Type B (PCR) (Negative) RSV (PCR) (Negative) POC Troponin I (0.01-0.04) ng/ml <Vitaliy Bartlett MD - Last Filed: 11/12/23 08:33> Lab Results 11/09/23 11/09/23 11/09/23 Range/Units 14:33 14:45 16:30 WBC 8.93 (4.50-11.00) K/uL RBC 4.10 L (4.30-5.90) m/uL Hgb 14.3 (13.5-17.5) gm/dL Hct 39.3 (37.0-53.0) % MCV 96 (80-100) fL MCH 35 H (26-34) pg MCHC 36 (32-36) gm/dL RDW Coeff of Annelise 11.9 (11.5-15.5) % Plt Count 206 (140-440) K/uL Neut % (Auto) 71.3 (42.0-72.0) % Lymph % (Auto) 17.8 L (20-44) % [place] % (Auto) 7.7 (0.0-11.0) % Eos % (Auto) 2.2 (0.0-7.0) % Baso % (Auto) 0.3 (0.0-3.0) % Neut # (Auto) 6.36 (1.7-7.0) K/uL Lymph # (Auto) 1.60 (0.90-2.90) K/uL [place] # (Auto) 0.70 (0.00-0.90) K/UL Eos # (Auto) 0.20 (0.00-0.50) K/uL Baso # (Auto) 0.03 (0.00-0.30) K/uL Abs Immat Gran (auto) 0.06 (0.00-0.30) K/uL Imm/Tot Granulo (auto) 0.7 % Sodium 140 (135-149) mmol/L Potassium 3.3 L (3.6-5.1) mmol/L Chloride 106 (96-114) mmol/L Carbon Dioxide 28 (20-32) mmol/L Anion Gap 6 L (7-15) mEq/L BUN 22 (7-30) mg/dL Creatinine 1.3 (0.5-1.5) mg/dL Estimated Creat Clear 52.56 Estimated GFR 63 ml/min Glucose 159 H (60-115) mg/dL Lactate 1.5 (0.5-1.9) mmol/L Calcium 8.6 (8.4-10.6) mg/dL Ferritin 250.0 (17.9-464.0) ng/mL Total Bilirubin 1.0 (0.1-1.5) mg/dL Direct Bilirubin 0.2 (0.0-0.5) mg/dL AST 27 (12-35) U/L ALT 27 (4-50) U/L Alkaline Phosphatase 53 (40-150) U/L Troponin I 0.07 H* 0.07 H* (0.01-0.04) ng/mL C-Reactive Protein 0.6 (0.5-1.0) mg/dL NT-Pro-B Natriuret Pep 165 pg/mL Total Protein 6.7 (6.0-8.3) g/dL Albumin 4.1 (3.3-5.0) g/dL SARS-CoV-2 (PCR) Negative SARS-CoV-2 (Negative) Influenza Type A (PCR) Negative PCR FLU A (Negative) Influenza Type B (PCR) Negative PCR FLU B (Negative) RSV (PCR) Negative PCR RSV (Negative) POC Troponin I 0.06 H (0.01-0.04) ng/ml 11/09/23 Range/Units 18:18 WBC (4.50-11.00) K/uL RBC (4.30-5.90) m/uL Hgb (13.5-17.5) gm/dL Hct (37.0-53.0) % MCV (80-100) fL MCH (26-34) pg MCHC (32-36) gm/dL RDW Coeff of Annelise (11.5-15.5) % Plt Count (140-440) K/uL Neut % (Auto) (42.0-72.0) % Lymph % (Auto) (20-44) % [place] % (Auto) (0.0-11.0) % Eos % (Auto) (0.0-7.0) % Baso % (Auto) (0.0-3.0) % Neut # (Auto) (1.7-7.0) K/uL Lymph # (Auto) (0.90-2.90) K/uL [place] # (Auto) (0.00-0.90) K/UL Eos # (Auto) (0.00-0.50) K/uL Baso # (Auto) (0.00-0.30) K/uL Abs Immat Gran (auto) (0.00-0.30) K/uL Imm/Tot Granulo (auto) % Sodium (135-149) mmol/L Potassium (3.6-5.1) mmol/L Chloride (96-114) mmol/L Carbon Dioxide (20-32) mmol/L Anion Gap (7-15) mEq/L BUN (7-30) mg/dL Creatinine (0.5-1.5) mg/dL Estimated Creat Clear Estimated GFR ml/min Glucose (60-115) mg/dL Lactate (0.5-1.9) mmol/L Calcium (8.4-10.6) mg/dL Ferritin (17.9-464.0) ng/mL Total Bilirubin (0.1-1.5) mg/dL Direct Bilirubin (0.0-0.5) mg/dL AST (12-35) U/L ALT (4-50) U/L Alkaline Phosphatase (40-150) U/L Troponin I 0.07 H* (0.01-0.04) ng/mL C-Reactive Protein (0.5-1.0) mg/dL NT-Pro-B Natriuret Pep pg/mL Total Protein (6.0-8.3) g/dL Albumin (3.3-5.0) g/dL SARS-CoV-2 (PCR) (Negative) Influenza Type A (PCR) (Negative) Influenza Type B (PCR) (Negative) RSV (PCR) (Negative) POC Troponin I (0.01-0.04) ng/ml <Kyle Cai MD - Last Filed: 11/10/23 00:55> Discharge Plan Discharge Clinical Impression: Hemochromatosis, Moderate nicotine withdrawal, Coronary artery disease, Vertigo, COPD exacerbation, Pulmonary nodule, Hypertension <Vitaliy Bartlett MD - Last Filed: 11/12/23 08:33> Patient Disposition: Home w/ Parent or Adult <Vitaliy Bartlett MD - Last Filed: 11/12/23 08:33> Condition: Improved <Vitaliy Bartlett MD - Last Filed: 11/12/23 08:33> Instructions: Vertigo (DC), COPD (Chronic Obstructive Pulmonary Disease) (ED) <Vitaliy Bartlett MD - Last Filed: 11/12/23 08:33> Additional Instructions: Please continue your you had normal blood pressure and home medications. Use the nicotine patches that your doctor prescribed form to use at home. Follow-up with his primary care doctor within 1 week and with the [facility] in [place] as soon as possible to discuss reassessment of his cardiac condition given his history of balloon angioplasty in the past. His other labs look reassuring. Please follow-up with your doctor for cholesterol and testosterone checks. The CT scan of your brain shows evidence of an old stroke that you should really modify risk factors such as smoking, cholesterol, and blood pressure. Recommend again recheck with regular doctor within next few days to discuss these issues. Would recommend light activity until you see your doctor would recommend an aspirin daily. Use the albuterol inhaler every 4 hours if needed for shortness of breath, or cough. Use prednisone once daily for 5 days. This will help treat your wheezing and COPD. Continue to work on smoking cessation. Great choice to quit smoking! The CT scan of your lungs today shows a 5 mm nodule in your left lower lobe. Please see your regular doctor to arrange a follow-up CT scan in February for this lung nodule. If you have any worsening vertigo, dizziness, trouble breathing, or any episodes of chest pain, weakness, or any problems, please return to the ER immediately. <Vitaliy Bartlett MD - Last Filed: 11/12/23 08:33> Activity Level: Light activity <Vitaliy Bartlett MD - Last Filed: 11/12/23 08:33> Light activity <Kyle Cai MD - Last Filed: 11/10/23 00:55> Discharge Diet: Heart Healthy (2 gm sodium, low fat) <Vitaliy Bartlett MD - Last Filed: 11/12/23 08:33> Heart Healthy (2 gm sodium, low fat) <Kyle Cai MD - Last Filed: 11/10/23 00:55> Prescriptions: New prednisone 20 mg tablet 40 mg PO DAILY 5 Days Qty: 10 0RF albuterol sulfate 90 mcg/actuation HFA aerosol inhaler 1 inh inhalation QID PRN (Reason: shortness of breath or wheezing) Qty: 8.5 0RF No Action lisinopril 40 mg tablet 40 mg PO QDAY Qty: 90 3RF duloxetine 60 mg capsule,delayed release(DR/EC) 60 mg PO QDAY Qty: 90 3RF amlodipine 10 mg tablet 10 mg PO DAILY Qty: 90 3RF rosuvastatin 20 mg tablet 20 mg PO QPM Qty: 90 3RF testosterone cypionate 100 mg/mL oil 100 mg IM Q2W Qty: 10 0RF Hold Instructions: not using right now carvedilol 12.5 mg tablet 12.5 mg PO BID Qty: 180 3RF Rx Instructions: must administer with a meal/food (DME) BD Integra Syringe 3 mL 22 gauge x 1 1/2 syringe See Rx Instructions .Route Qty: 100 1RF Rx Instructions: inject testosterone q2 weeks (DME) BD Integra Syringe 3 mL 22 gauge x 1 1/2 syringe See Rx Instructions .Route Qty: 100 1RF Rx Instructions: inject testosterone q 2 weeks nicotine 21 mg/24 hr patch 24 hour 1 patch transdermal Q24H Qty: 28 0RF gabapentin 300 mg capsule 300 mg PO BID Qty: 180 1RF <Vitaliy Bartlett MD - Last Filed: 11/12/23 08:33> Follow Up/Referrals: Ele Kim DO [Primary Care Provider] - <Vitaliy Bartlett MD - Last Filed: 11/12/23 08:33> Stand Alone Forms: My[facility] Info Instructions <Vitaliy Bartlett MD - Last Filed: 11/12/23 08:33>
--- NOTE | 2023-11-09 14:43 | CRLHL7_ITS ---
For Patients: As a result of the Century Cures Act, medical imaging exams and procedure reports are released immediately into your electronic medical record. You may view this report before your referring provider. If you have questions, please contact your health care provider. Indication: Cough Technique: Chest 1 view Comparison: Chest x-ray 10/24/2023 Findings/Impression: Cardiovascular and mediastinum: Heart size and vasculature are normal in caliber and appearance. Lungs and pleural space: Lungs are clear. No sign of infiltrate or mass. No sign of pleural effusion. No pneumothorax. Bones and soft tissues: No acute findings. Dictated by Doc Rosas MD @ 11/09/2023 3:31:01 PM (Electronically Signed)
[2023-11-09] MEDS: LORazepam 2 MG/ML inj 1 MG IVP (14:47)
[2023-11-09] MEDS: 0.9 % SODIUM CHLORIDE 1000 ml 1,000 ML 6000 ML IV (14:48)
--- NOTE | 2023-11-09 14:49 | CRLHL7_ITS ---
For Patients: As a result of the Century Cures Act, medical imaging exams and procedure reports are released immediately into your electronic medical record. You may view this report before your referring provider. If you have questions, please contact your health care provider. INDICATION: Weakness, syncope TECHNIQUE: CT head without contrast. COMPARISON: Head CT 03/04/2023 FINDINGS: CSF spaces: Within normal limits for age. Brain parenchyma: No intracranial bleed or mass effect. Mild low density within the deep white matter. Old lacunar infarct right cerebellum. Skull base and calvarium: The visualized paranasal sinuses and mastoid air cells demonstrate no acute or significant findings. The visualized orbits are grossly unremarkable. No skull fractures. Atherosclerosis. IMPRESSION: 1. No intracranial bleed or mass effect. 2. Old lacunar infarct right cerebellum. 3. Mild nonspecific white matter disease, likely microangiopathy. Please note that all CT scans at this facility use dose modulation, iterative reconstruction, and/or weight-based dosing when appropriate to reduce radiation dose to as low as reasonably achievable. Dictated by Doc Rosas MD @ 11/09/2023 3:29:30 PM (Electronically Signed)
[2023-11-09 15:03] LABS: Lactate* 1.5 mmol/L (0.5-1.9)
[2023-11-09 15:07] LABS: Troponin, Point-of-Care* 0.06 ng/ml (0.01-0.04)
[2023-11-09] MEDS: NICOTINE 14 mg PATCH 1 PATCH TRANSDERMA (15:12)
[2023-11-09 15:14] LABS: Basophils Absolute Auto 0.03 K/uL (0.00-0.30); Basophils Percent Auto 0.3 % (0.0-3.0); Eosinophils Percent Auto 2.2 % (0.0-7.0); Hematocrit 39.3 % (37.0-53.0); Hemoglobin* 14.3 gm/dL (13.5-17.5); Immature Granulocytes Abs Auto 0.06 K/uL (0.00-0.30); Immature Granulocytes Pct Auto 0.7 %; Lymphocytes Percent Auto 17.8 % (20-44); Mean Corpuscular HGB Conc 36 gm/dL (32-36); Mean Corpuscular Hemoglobin 35 pg (26-34); Mean Corpuscular Volume 96 fL (80-100); Monocytes Percent Auto 7.7 % (0.0-11.0); Neutrophils Absolute Auto 6.36 K/uL (1.7-7.0); Neutrophils Percent Auto 71.3 % (42.0-72.0); Platelet Count* 206 K/uL (140-440); RDW Coefficient of Variation % 11.9 % (11.5-15.5); White Blood Count* 8.93 K/uL (4.50-11.00)
[2023-11-09 15:18] LABS: Slide Review Reflex No
[2023-11-09 15:19] LABS: Albumin* 4.1 g/dL (3.3-5.0); Chloride* 106 mmol/L (96-114)
[2023-11-09 15:20] LABS: Potassium* 3.3 mmol/L (3.6-5.1); Sodium* 140 mmol/L (135-149)
[2023-11-09 15:22] LABS: Creatinine* 1.3 mg/dL (0.5-1.5); Est. Creatinine Clearance* 52.56; Estimated Glomerular Filt Rate 63 ml/min
[2023-11-09 15:23] LABS: Alanine Aminotransferase* 27 U/L (4-50); Alkaline Phosphatase* 53 U/L (40-150); Anion Gap 6 mEq/L (7-15); Aspartate Amino Transferase* 27 U/L (12-35); Bilirubin Direct* 0.2 mg/dL (0.0-0.5); Blood Urea Nitrogen* 22 mg/dL (7-30); Calcium* 8.6 mg/dL (8.4-10.6); Carbon Dioxide* 28 mmol/L (20-32); Glucose* 159 mg/dL (60-115); Total Protein* 6.7 g/dL (6.0-8.3)
[2023-11-09 15:26] LABS: C Reactive Protein* 0.6 mg/dL (0.5-1.0)
[2023-11-09 15:43] LABS: NT Pro B Type NatriureticPept* 165 pg/mL; Troponin I* 0.07 ng/mL (0.01-0.04)
--- NOTE | 2023-11-09 15:50 | ED.NURSE ---
Lab called and informed of the critical Trop I 0.[address] and reported result to Dr[address] Bartlett.
[2023-11-09 15:52] LABS: PCR FLU A Negative PCR FLU A (Negative); PCR FLU B Negative PCR FLU B (Negative); PCR RSV Negative PCR RSV (Negative)
[2023-11-09 15:53] LABS: SARS PCR* Negative SARS-CoV-2 (Negative)
[2023-11-09] MEDS: ASPIRIN 81 MG TAB.CHEW 324 MG PO (15:53)
[2023-11-09 17:14] LABS: Troponin I* 0.07 ng/mL (0.01-0.04)
--- NOTE | 2023-11-09 18:34 | CRLHL7_ITS ---
For Patients: As a result of the Century Cures Act, medical imaging exams and procedure reports are released immediately into your electronic medical record. You may view this report before your referring provider. If you have questions, please contact your health care provider. INDICATION: DYSPNEA, DIZZINESS CT CHEST WITH CONTRAST TECHNIQUE: Multidetector CT imaging was performed through the chest following intravenous contrast administration using 95 mL Isovue 370. Coronal and sagittal reconstructions were generated. COMPARISON: 03/04/[address] FINDINGS: Lungs and airways: Shallow inspiration with mild dependent and basilar lung atelectasis. No confluent consolidation to suggest pneumonia. Left lower lobe lung nodule on image 108 of series 5 measures 5 millimeters in size and appears slightly larger than on the previous exam when it measured 4 millimeters. Central airways are patent. Pleura and pleural spaces: No pleural effusions or pneumothorax. Heart and mediastinum: Normal heart size. No significant pericardial effusion. No pathologically enlarged mediastinal lymph nodes. Vascular structures: No filling defects in the pulmonary arterial tree to suggest pulmonary emboli. Normal caliber thoracic aorta with mild atherosclerotic calcification. Moderate to severe coronary artery calcifications. Chest wall and axillae: Unchanged mild bilateral gynecomastia. No mass or axillary lymphadenopathy. Osseous structures: Unchanged chronic mild compression fracture of the superior endplate of T4. no acute fractures identified. 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 Status post cholecystectomy. IMPRESSION: 1. No pulmonary emboli, pneumonia, or other acute intrathoracic abnormality identified. 2. 5 millimeter left lower lobe lung nodule appears slightly larger than on the previous screening chest CT of 03/04/2023. Follow-up low-dose screening CT at 12 months (late February 2024) is recommended for re-evaluation. 3. Nonacute additional findings as detailed above. KOBE ULLOA MD [employer] Dictated by Reinier Ulloa MD @ 11/09/2023 8:14:40 PM Please note that all CT scans at this facility use dose modulation, iterative reconstruction, and/or weight-based dosing when appropriate to reduce radiation dose to as low as reasonably achievable. Dictated by: Reinier Ulloa MD @ 11/09/2023 20:15:03 (Electronically Signed)
[2023-11-09] MEDS: IPRAT-ALBUT 0.5-2.5 MG/3 ML NEB 1 NEB IH (18:42)
[2023-11-09] MEDS: METHYLPREDNISOLONE SOD SUCC 40 MG/ML IVP (18:42)
[2023-11-09 19:08] LABS: Troponin I* 0.07 ng/mL (0.01-0.04)
--- NOTE | 2023-11-09 21:04 | ED.NURSE ---
patient up ind walking to bathroom and back, denies any dizziness or trouble walking. denies CP or SOB. pt states ready to discharge, MD updated.
== END 2023-11-09 21:05 | disposition home or self-care (01) ==
PROVIDERS: Family Medicine; Emergency Provider Emergency Medicine; PCP Family Medicine
DX: E83.119 Hemochromatosis, unspecified (principal); I25.10 Atherosclerotic heart disease of native coronary artery without angina pectoris; J44.1 Chronic obstructive pulmonary disease with (acute) exacerbation; I10 Essential (primary) hypertension
CPT/HCPCS: 36415; 70450; 71045; 71275; 80048; 80076; 82728; 83605; 83880; 84484; 85025; 86140; 87631; 93005; 94640; 94761; 99285; A9270; J2060; J2920; J7030; Q9967; S4990

== ENCOUNTER 2023-11-11 05:25 | Outpatient (CLI) | payer BC, SELFPAY | END 2023-11-11 05:26 | disposition home or self-care (01) | LOC: NFLDREF 11-16 10:30 | PROVIDERS: PCP Family Medicine; Referring Provider Family Medicine; Visit Provider Family Medicine | DX: I10 Essential (primary) hypertension (principal); E83.119 Hemochromatosis, unspecified; G62.9 Polyneuropathy, unspecified; E29.1 Testicular hypofunction; Z13.6 Encounter for screening for cardiovascular disorders | CPT/HCPCS: 80053; 80061; 82043; 82570; 82607; 82728; 83540; 83550; 84270; 84402; 84403 ==

== ENCOUNTER 2023-12-15 03:54 | Outpatient (CLI) | payer BC, SELFPAY | END 2023-12-15 03:55 | disposition home or self-care (01) | LOC: AMB 12-16 23:44 | PROVIDERS: PCP Family Medicine; Visit Provider Family Medicine | DX: R07.89 Other chest pain (principal) | CPT/HCPCS: A0425; A0427 ==

== ENCOUNTER 2024-02-21 13:24 | Outpatient (CLI) | payer BC, SELFPAY | END 2024-02-21 13:25 | disposition home or self-care (01) | LOC: NFLDREF 03-01 12:27 | PROVIDERS: PCP Physician Assistant Medical; Referring Provider Physician Assistant Medical; Visit Provider Physician Assistant Medical | DX: G62.9 Polyneuropathy, unspecified (principal); Z79.899 Other long term (current) drug therapy; N18.30 Chronic kidney disease, stage 3 unspecified; E29.1 Testicular hypofunction; I10 Essential (primary) hypertension; I25.10 Atherosclerotic heart disease of native coronary artery without angina pectoris; Z72.0 Tobacco use; N18.31 Chronic kidney disease, stage 3a; F33.9 Major depressive disorder, recurrent, unspecified | CPT/HCPCS: 84439; 84443 ==

== ENCOUNTER 2024-05-03 07:53 | Outpatient (CLI) | payer BC, SELFPAY ==
--- NOTE | 2024-05-03 08:00 | CRLHL7_ITS ---
For Patients: As a result of the Century Cures Act, medical imaging exams and procedure reports are released immediately into your electronic medical record. You may view this report before your referring provider. If you have questions, please contact your health care provider. INDICATION: Lung cancer screening. High-risk patient TECHNIQUE: Low-dose lung cancer screening non-contrast CT chest. Dose reduction techniques were used. COMPARISON: None. FINDINGS: NODULES: Scattered sub 6 millimeter pulmonary nodules. Examples include a 5 millimeter left lower lobe nodule (series 3 image 94), a 4 millimeter left upper lobe nodule (series 3 image 74), a 3 millimeter right upper lobe nodule (series 3, image 48) and a 4 millimeter average diameter right middle lobe nodule (series 3, image 76). LUNGS AND PLEURA: Minimal emphysema. MEDIASTINUM: No lymphadenopathy. CORONARY ARTERY CALCIFICATION: Severe. LIMITED UPPER ABDOMEN: Status post cholecystectomy. MUSCULOSKELETAL: Minimal chronic appearing anterior height loss at T4 and T5. 1. ACR Lung-RADS category 2. Benign. Based on imaging features or indolent behavior. 2. Management: Recommend continued annual screening with low-dose CT 12 months. Please note that all CT scans at this facility use dose modulation, iterative reconstruction, and/or weight-based dosing when appropriate to reduce radiation dose to as low as reasonably achievable. Dictated by Zaheer Flores MD @ 05/03/2024 10:39:16 AM (Electronically Signed)
== END 2024-05-03 07:54 | disposition home or self-care (01) ==
LOC: CT 07:54
PROVIDERS: PCP Physician Assistant Medical; Visit Provider Physician Assistant Medical
DX: Z12.2 Encounter for screening for malignant neoplasm of respiratory organs (principal); Z72.0 Tobacco use
CPT/HCPCS: 71271

== ENCOUNTER 2024-05-07 15:14 | Outpatient (CLI) | payer BC, SELFPAY | END 2024-05-07 15:15 | disposition home or self-care (01) | LOC: NFLDREF 05-08 18:39 | PROVIDERS: PCP Physician Assistant Medical; Referring Provider Physician Assistant Medical; Visit Provider Physician Assistant Medical | DX: Z13.29 Encounter for screening for other suspected endocrine disorder (principal) | CPT/HCPCS: 84439; 84443 ==

== ENCOUNTER 2024-12-25 14:14 | Outpatient (CLI) | payer OTHER, SELFPAY | END 2024-12-25 14:15 | disposition home or self-care (01) | LOC: NFLDREF 12-29 03:51 | PROVIDERS: PCP Physician Assistant Medical; Referring Provider Physician Assistant Medical; Visit Provider Physician Assistant Medical | DX: E05.90 Thyrotoxicosis, unspecified without thyrotoxic crisis or storm (principal); E87.6 Hypokalemia; I10 Essential (primary) hypertension; N18.31 Chronic kidney disease, stage 3a; L30.9 Dermatitis, unspecified; I25.810 Atherosclerosis of coronary artery bypass graft(s) without angina pectoris; F33.9 Major depressive disorder, recurrent, unspecified; G62.9 Polyneuropathy, unspecified; Z12.5 Encounter for screening for malignant neoplasm of prostate | CPT/HCPCS: 80053; 80061; 84443; G0103 ==

== ENCOUNTER 2025-05-06 08:58 | Outpatient (CLI) | payer OTHER, SELFPAY ==
--- NOTE | 2025-05-06 09:00 | CRLHL7_ITS ---
For Patients: As a result of the Century Cures Act, medical imaging exams and procedure reports are released immediately into your electronic medical record. You may view this report before your referring provider. If you have questions, please contact your health care provider. INDICATION: Lung cancer screening. History of smoking. High risk patient with greater than 41 pack-year smoking history. TECHNIQUE: Low-dose lung cancer screening non-contrast CT chest. Dose reduction techniques were used. COMPARISON: 03/04/2023, 11/09/2023 FINDINGS: NODULES: 5.8 millimeter left lower lobe pulmonary nodule is unchanged compared to the most recent examination. Stable 2.5 millimeter nodule in the lingula. No new nodule. LUNGS AND PLEURA: No acute findings MEDIASTINUM: No adenopathy. Atherosclerotic changes. CORONARY ARTERY CALCIFICATION: Severe. LIMITED UPPER ABDOMEN: Stable appearance of the adrenal glands. MUSCULOSKELETAL: No acute fracture. IMPRESSION: Stable left-sided pulmonary nodules. LUNG-RADS CATEGORY: 2: Benign. RADIOLOGIST RECOMMENDATION: Continue annual screening, if eligible, with low-dose CT chest in 12 months. Please note that all CT scans at this facility use dose modulation, iterative reconstruction, and/or weight-based dosing when appropriate to reduce radiation dose to as low as reasonably achievable. Dictated by Jatin Shaikh MD @ 05/06/2025 9:30:29 AM (Electronically Signed)
--- OUTSIDE RECORDS SUMMARY | 2025-05-07 01:57 | XMS_ITS | Clinical Summary ---
Author Organization [employer] Address [address] [place] [address] Care Team Providers Care Director Of First Impressions Name Role Phone Josh Brambila PA-C Primary Care Provider [phone] Allergies No known active allergies Medications DULoxetine (Cymbalta) 60 mg Delayed-release capsule Take 60 mg by mouth once daily. Active gabapentin (NEURONTIN) 300 mg capsule Take 600 mg by mouth once daily. Active acetaminophen (TYLENOL) 325 mg tablet Take 650-975 mg by mouth every 6 hours if needed for Pain. Max acetaminophen dose: 4000mg in 24 hrs. Active amLODIPine 10 mg tabletIndication s:HTN (hypertension) Take 1 Tablet (10 mg) by mouth once daily. 90 Tablet 03/05/20 25 Active furosemide 20 mg tabletIndication s:Acute diastolic congestive heart failure (HC) Take 1 Tablet (20 mg) by mouth once every other day. 45 Tablet 03/05/20 25 Active rosuvastatin 10 mg tabletIndication s:Dyslipidemia Take 1 Tablet (10 mg) by mouth once daily. 90 Tablet 03/05/20 25 Active aspirin chewable 81 mg chewable tabletIndication s:S/P drug eluting coronary stent placement,Mendez ry artery disease involving venetie ira coronary artery without angina pectoris, unspecified whether venetie ira or transplanted heart Take 1 Tablet (81 mg) by mouth or nasogastric tube once daily. Take once daily by mouth indefinitely 90 Tablet 03/05/20 25 Active nitroglycerin 0.4 mg sublingual tabletIndication s:S/P drug eluting coronary stent placement,Mendez ry artery disease involving venetie ira coronary artery without angina pectoris, unspecified whether venetie ira or transplanted heart Place 1 Tablet (0.4 mg) under the tongue every 5 minutes if needed for Chest pain 1st choice (Hold if SBP less than 90 mmHg). Up to 3 tablets in 15 minutes. 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 180 Tablet 3 03/05/20 25 Active hydrALAZINE 10 mg tabletIndication s:Hypertension Take 1 Tablet (10 mg) by mouth three times daily. 270 Tablet 3 03/05/20 25 Active potassium chloride 10 mEq extended-release tabletIndication s:HTN (hypertension) Take 2 Tablets (20 mEq) by mouth once daily with a meal. 180 Tablet 3 03/05/20 25 Active lisinopriL 40 mg tabletIndication s:HTN (hypertension) Take 1 Tablet (40 mg) by mouth once daily. 90 Tablet 3 03/05/20 25 Active ezetimibe (Zetia) 10 mg tabletIndication s:Dyslipidemia Take 1 Tablet (10 mg) by mouth once daily. 90 Tablet 3 03/05/20 25 Active Active Problems Problem Noted Date Diagnosed Date Acute diastolic congestive heart failure 024 HTN (hypertension) 01/07/2024 Dyslipidemia 01/07/2024 Cardiovascular symptoms 12/26/2023 Peripheral neuropathy 12/16/2023 S/P cholecystectomy 12/16/2023 H/O colonoscopy 12/16/2023 Erectile dysfunction 12/16/2023 BPH (benign prostatic hyperplasia) 12/16/2023 Unstable angina pectoris 12/16/2023 Obesity 12/16/2023 ALCON (obstructive sleep apnea) 12/14/2023 Overview (12/14/2023): - 06/2023: severe ALCON Hypertension 12/13/2023 Dyspnea on exertion 12/13/2023 Abnormal stress test 12/13/2023 Equivalent angina 12/13/2023 CAD (coronary artery disease) 12/02/2023 Hypertension secondary to endocrine disorders Stage 3a chronic kidney disease 12/03/2020 Urolithiasis 12/03/2020 Hyperaldosteronism 10/17/2014 Overview (12/16/2023): Converted unresolved ICD9, potential mismatch. 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 Provider to review and confirm Problem list name updated by automated process. Provider to review and confirm Encounters Date Type Department Care Team Description 03/07/2025 Telephone [facility] [place] [address] [address] Georges Yee PA Results (Lipid 03/05/25) 03/05/2025 10:20 AM CDT Orders Only [facility] [place] [address] [address] Lab 03/05/2025 9:30 AM CDT Office Visit [facility] [place] [address] [address] Georges Yee PA CV General Cardiology Est (6 MONTH F/U; ECHO PRIOR 03/01 /DX: /Heart failure, unspecified HF chronicity, unspecified heart failure type (HC) [I... /Hypertension [I10] //PCP: Josh Brambila PA-C/) 03/05/2025 Travel 03/01/2025 8:00 AM CDT Ancillary Procedure [facility] [address] [facility] [address] [place] [address] 03/01/2025 Travel 02/24/2025 Travel 02/16/2025 Refill [facility] [place] [address] [address] Georges Yee PA Refill Request (Rosuvastatin) from Last 3 Months Social History Tobacco Use Types Packs/Day Years Used Date Smoking Tobacco: Every Day Cigarettes Smokeless Tobacco: Never Tobacco Cessation:Ready to Q uit: Not Asked; Counseling Given: Not Answered Comments:about 10 a day 03/05/25 Alcohol Use Standard Drinks/Week Comments Yes 0 (1 standard drink = 0.6 oz pur e alcohol) 03/05/25 Social Connections Answer Date Recorded Do you often feel lonely or isolated from those around you? 0 01/07/2024 Financial Resource Strain Answer Date R ecorded Difficulty of Paying Living Expenses 3 01/07/2024 Difficulty of Paying Living Expenses Not on file 01/07/2024 Food Insecurity Answer Date Recorded Do you worry your food will run out before you are able to buy more? 1 01/07/2024 Transportation Needs Answer Date Record ed Does lack of transportation keep you from medica l appointments? 1 01/07/2024 Does lack of transportation keep you from work, meetings or getting things that you need? 1 01/07/2024 Housing Stability Answer Date Recorded What is your housing situation today? 1 01/07/2024 Interpersonal Safety Answer Date Record ed Are you being hit, kicked, p ushed or yelled at (see row info)? No 01/07/2024 Interpersonal Safety Abuse 12 - 18 Not on file 01/07/2024 Interpersonal Safety Ambulatory Vulnerability No t on file 01/07/2024 Utilities Answer Date Recorded Do you have trouble paying f or utilities (for example, heat, electricity, water, phone)? 1 01/07/2024 Sex and Gender Information Value Date Recorded Sex Assigned at Not on file Legal Sex Male 6:18 AM [employer] Gender Identity Not on file Sexual Orientation Not on file Obstetrics History Last Filed Vital Signs Vital Sign Reading Time Taken Comments Blood Pressure 159/99 03/05/2025 9:29 AM CDT Pulse 84 03/05/2025 9:29 AM CDT Temperature 36.5 C (97.7 F) 01/11/2024 9:00 AM M[employer]NER Respiratory Rate 19 01/11/2024 9:00 AM [employer] RUNNER Oxygen Saturation 95% 03/05/2025 9:29 AM CDT Inhaled Oxygen Concentration - - Weight 101 kg (222 lb 9.6 oz) 03/05/2025 9:29 AM CDT Height 165.1 cm (5' 5) 03/05/2025 9:29 AM CDT Body Mass Index 37.04 03/05/2025 9:29 AM CDT Plan of Treatment Health Maintenance Due Date Last Done Comments Tdap 1974 Depression screening for age 12+ 1975 HIV for age 15-65 1978 Hepatitis C screening for age 18-79 1981 Pneumococcal series for age 50+ (1 of 2 - PCV) 1982 Tetanus booster 1983 Zoster (shingles) series for age 50+ (1 of 2) 2013 COVID-19 vaccine series ( season) 2024 10/27/2021, 02/14/2021, 01/24/2021 Influenza Vaccine (#1) 2025 BMI (ht and wt on same day) for age 18+ 03/05/2026 03/05/2025, 08/17/2024, 03/21/2024, Additional history exists Colonoscopy through age 75 05/28/2029 05/28/2019 Lipids for age 45-75 03/05/2030 03/05/2025, 03/21/2024, 01/17/2024, Additional history exists RSV vaccine for adults or (1 - 1-dose 75+ series) 2038 Hepatitis B series for 19+ Aged Out N o longer eligible based on patient's age to complete this topic Procedures Procedure Name Priority Date/Time Associated Diagnosis Comments LIPID PANEL W REFLEX MEASURED LDL Routine 03/05/2025 10:31 AM CDT Dyslipidemia Coronary artery disease involving venetie ira coronary artery without angina pectoris, unspecified whether venetie ira or transplanted heart ECHO TTE COMPLETE W CONTRAST Routine 03/01/2025 8:58 AM CDT 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 Heart failure, unspecified HF chronicity, unspecified heart failure type (HC) SCAN-COLONOSCOPY 05/28/2019 2:00 PM CDT from Last 3 Months or Most Recently Relevant to Health Maintenance Results * (ABNORMAL) LIPID PANEL W REFLEX MEASURED LDL (03/05/2025 10:31 AM CDT) CHOLESTEROL,TOTAL 191 100 - 199 mg/dL 03/05/2025 11:18 AM CDT [facility] Comment: Cholesterol, Total Reference Ranges Desirable <200 mg/dL Borderline 200-239 mg/dL High >=240 mg/dL TRIGLYCERIDES 284(H) <150 mg/dL 03/05/2025 11:18 AM CDT [facility] HDL CHOLESTEROL 39(L) >40 mg/dL 11:18 AM CDT [facility] NON-HDL CHOLESTEROL 152(H) <145 mg/dl 03/05/2025 11:18 AM CDT [facility] CHOL/HDL RATIO 4.90(H) <4.50 03/05/2025 11:18 AM CDT [facility] LDL CHOLESTEROL 95 <=130 mg/dL 03/05/2025 11:18 AM CDT [facility] VLDL CHOLESTEROL 57(H) <=30 mg/dL 03/05/2025 11:18 AM CDT [facility] PROVIDER ORDERED STATUS FASTING 03/05/2025 11:18 AM CDT [facility] Blood BLOOD SPECIMEN / Unknown Venipuncture / Unknown 03/05/2025 10:31 AM CDT 03/05/2025 10:32 AM CDT us Georges GARCIA CHEMISTRY Final Res ult [facility] [address] [place] [address], [place] * ECHO TTE COMPLETE W CONTRAST (03/01/2025 8:58 AM CDT) AORTIC VALVE MEAN PG 7 mmHg EJECTION FRACTION 64 % LVEDD 4.2 cm Anatomical Region Laterality Modality Ultrasound 03/01/2025 8:09 AM CDT Narrative 03/01/2025 9:52 AM CDT ECHOCARDIOGRAM ALEX ULLOA : 1965 59 years Study Date: 03/01/2025 8:09:56 AM Gender: M BP: 138/87 mmHg Height: 165.10 cm BSA: 2.03 m Weight: 96.62 kg Tech: R Referring MD: GEORGES YEE Site: [facility] Reading Location: Mobile OP Patient Location: Outpatient. Procedure: 2D w/ Contrast, Color Doppler and Spectral Doppler. 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 Final Impressions: 1. Normal left ventricular size, normal wall thickness, normal global systolic function, calculated EF of 64 %. 2. Echo contrast was administered to enhance visualization of all left ventricular segments. 3. Right ventricular cavity size is normal, global systolic RV function is normal. 4. Normal left atrium size. 5. The aortic valve is normal and trileaflet, no stenosis and no regurgitation. 6. The mitral valve is normal, trace mitral regurgitation. 7. Tricuspid valve is normal, trace tricuspid regurgitation. 8. No pericardial effusion. Chamber Sizes and Function Normal left ventricular size, normal wall thickness, normal global systolic function, calculated EF of 64 %. No resting regional wall motion abnormality visualized. Left atrial size is normal. Left atrial pressure is normal. Right ventricular cavity size is normal, global systolic RV function is normal. The right atrium is normal. The pulmonary artery is of normal size and origin. The sinus of Valsalva is normal sized. The ascending aorta is normal sized. Valves, RV Pressures and Diastolic Function The aortic valve is normal in structure and trileaflet, no stenosis and no regurgitation. The mitral valve is normal in structure, trace mitral regurgitation. Normal diastolic function. The tricuspid valve is normal in structure, trace tricuspid regurgitation. The pulmonic valve is normal. Trace pulmonary regurgitation. Masses, Effusion, Shunts There is no pericardial effusion. The inferior vena cava is normal sized, respiratory size variation greater than 50%. Interatrial septum is not well visualized. MEASUREMENTS AND CALCULATIONS 2-D Measurements and LV Function: LVID (d) 4.2 cm Planimetered EF 64 % LVID (s) 3.3 cm LV FS% (2D) 21 % IVS (d) 1.1 cm LVOT diameter 2.2 cm LVPW (d) 1.0 cm HR 75 bpm Ao Sinus 3.3 cm LA Vol index 31 ml/m2 Ao Sinus ULN 4.1 cm RV Basal Diam 3.5 cm Asc Ao 3.5 cm Asc Ao ULN 4.1 cm Diastology: Mitral Tissue Doppler E Peak 0.6 m/s e', Septum 0.05 m/s A Peak 0.8 m/s e', Lateral 0.08 m/s E/A 0.7 E/e' Average 8.62 DT 254 msec Aortic Valve: Vmax 1.8 m/s TRINITY (V) 2.54 cm VTI 0.32 m TRINITY (I) 2.71 cm LVOT V max 1.2 m/s Max PG 13 mmHg LVOT VTI 0.23 m Mean PG 7 mmHg SV 86 ml Dim Index 0.71 SV index 42 ml/m CO 6.5 l/min CI 3.2 l/min/m Mitral Valve: MVA 3.0 cm MV P 1/2 74 msec Tricuspid Valve and estimated PA pressures: TAPSE 1.9 cm Pulmonic Valve: PIEDV 1.3 m/s Contrast documentation: 2ml ml diluted Definity, lot #[id number], [facility]# [id number] was administered peripherally to enhance visualization of all left ventricular segments. . This study was interpreted by an [facility] accredited facility. Final Procedure Note Dolores Montano, [facility] - 03/01/2025 ECHOCARDIOGRAM ALEX ULLOA : 1965 59 years Study Date: 03/01/2025 8:09:56 AM Gender: M BP: 138/87 mmHg Height: 165.10 cm BSA: 2.03 m Weight: 96.62 kg Tech: R Referring MD: GEORGES YEE Site: [facility] Reading Location: Mobile OP Patient Location: Outpatient. Procedure: 2D w/ Contrast, Color Doppler and Spectral Doppler. Indication for study: Coronary artery disease of venetie ira artery of nativeheart with stable angina pectoris; Heart failure, unspecified HFchronicity, unspecified heart failure type Cardiac Rhythm: Regular.Study quality: Fair. Final Impressions: 1. Normal left ventricular size, normal wall thickness, normal globalsystolic function, calculated EF of 64 %. 2. Echo contrast was administered to enhance visualization of all leftventricular segments. 3. Right ventricular cavity size is normal, global systolic RV functionis normal. 4. Normal left atrium size. 5. The aortic valve is normal and trileaflet, no stenosis and noregurgitation. 6. The mitral valve is normal, trace mitral regurgitation. 7. Tricuspid valve is normal, trace tricuspid regurgitation. 8. No pericardial effusion. Chamber Sizes and Function Normal left ventricular size, normal wall thickness, normal globalsystolic function, calculated EF of 64 %. No resting regional wall motionabnormality visualized. Left atrial size is normal. Left atrial pressureis normal. Right ventricular cavity size is normal, global systolic RVfunction is normal. The right atrium is normal. The pulmonary artery is ofnormal size and origin. The sinus of Valsalva is normal sized. Theascending aorta is normal sized. Valves, RV Pressures and Diastolic Function The aortic valve is normal in structure and trileaflet, no stenosis and noregurgitation. The mitral valve is normal in structure, trace mitralregurgitation. Normal diastolic function. The tricuspid valve is normal instructure, trace tricuspid regurgitation. The pulmonic valve is normal.Trace pulmonary regurgitation. Masses, Effusion, Shunts There is no pericardial effusion. The inferior vena cava is normal sized,respiratory size variation greater than 50%. Interatrial septum is notwell visualized. MEASUREMENTS AND CALCULATIONS 2-D Measurements and LV Function: LVID (d) 4.2 cm Planimetered EF 64 % LVID (s) 3.3 cm LV FS% (2D) 21 % IVS (d) 1.1 cm LVOT diameter 2.2 cm LVPW (d) 1.0 cm HR 75 bpm Ao Sinus 3.3 cm LA Vol index 31 ml/m2 Ao Sinus ULN 4.1 cm RV Basal Diam 3.5 cm Asc Ao 3.5 cm Asc Ao ULN 4.1 cm Diastology: Mitral Tissue Doppler E Peak 0.6 m/s e', Septum 0.05 m/s A Peak 0.8 m/s e', Lateral 0.08 m/s E/A 0.7 E/e' Average 8.62 DT 254 msec Aortic Valve: Vmax 1.8 m/s TRINITY (V) 2.54 cm VTI 0.32 m TRINITY (I) 2.71 cm LVOT V max 1.2 m/s Max PG 13 mmHg LVOT VTI 0.23 m Mean PG 7 mmHg SV 86 ml Dim Index 0.71 SV index 42 ml/m CO 6.5 l/min CI 3.2 l/min/m Mitral Valve: MVA 3.0 cm MV P 1/2 74 msec Tricuspid Valve and estimated PA pressures: TAPSE 1.9 cm Pulmonic Valve: PIEDV 1.3 m/s Contrast documentation: 2ml ml diluted Definity, lot #[id number], [facility]#[id number] was administered peripherally to enhance visualization of allleft ventricular segments. . This study was interpreted by an [facility] accredited facility. Final us Georges GARCIA ECHO ORD Final Res ult * SCAN-COLONOSCOPY (05/28/2019 2:00 PM CDT) Narrative Procedure Note Jaime Menezes MD - 05/28/2019 1:11 PM CDT [facility] [address] [place] [address], [address], [place] [address] Patient Name: Alex Ulloa Gender: Male Exam Date: 05/28/2019 Visit Number: [id number] Age: 53 Years Date of : 1965 Attending MD: Jaime Menezes MD Medical Record#: [id number] Procedure: Colonoscopy Indications: Colorectal cancer screening Referring MD: Hodan Pham MD Primary MD: Wagner Malhotra MD Medications: Admitting Medications: 0.9% Normal Saline at TKO Intra Procedure Medications: Patient received monitored anesthesia care. Complications: No immediate complications Procedure: An examination of the heart and lungs was performed and found to be withinacceptable limits. The patient was therefore deemed a reasonablecandidate for endoscopy and sedation. The risks and benefits of the procedure were explained to the patient.After obtaining informed consent, the patient received monitoredanesthesia care and I passed the scope without difficulty via the rectum to the cecum. The appendiceal orificeand ic valve were identified. The scope was retroflexed during theexamination The quality of the prep was excellent (Miralax/Gatorade/2tablets Bisacodyl/Magnesium Citrate). This was a complete examination throughout the entire colon. Findings: Polyp location: cecum. Quantity: 1. Size: 4 mm. Polyp shape: sessile. Maneuver: polypectomy was performed with a cold snare. Removal: complete. Retrieval: complete. Bleeding: none. Polyp location: sigmoid. Quantity: 1. Size: 3 mm. Polyp shape: sessile. Maneuver: polypectomy was performed with a cold snare . Removal: complete. Retrieval: complete. Bleeding: none. Diverticulosis. Location: - sigmoid. Description: moderate. Remainder of the exam is normal. Impression: Colorectal polyps Diverticulosis of colon without diverticulitis Preliminary Plan: Repeat colonoscopy in 5 years if one or more polyp(s) are adenomatous or10 years if all polyps are hyperplastic. Pathology Results: A: COLON, CECUM, POLYP: 1. Sessile serrated adenoma 2. Negative for overt dysplasia 3. Per the colonoscopy report: a. Polyp size: 4 mm b. Resection: Complete c. Retrieval: Complete B: COLON, SIGMOID, POLYP: 1. Hyperplastic polyp MICROSCOPIC A: Performed B: Performed Electronically signed by: Danny Medeiros MD Orders Instruction(s)/Education: Instruction/Education Timeframe Assessment Colon Cancer Prevention K63.5 Colon Polyps K63.5 Final Plan: Return for a colonoscopy in 5 years. We will attempt to contact you at appropriate intervals via U.[place]. mail. Wemay not be able to find you or contact you at that time, therefore youshould know that the responsibility for following our recommendation restswith you. If you don't hear from us at the time your procedure is due,please contact our office to schedule an appointment. If your contactinformation should change, please contact our office so that we can updateyour record. _Electronically signed by: Jaime Menezes MD 05/28/2019 cc: Wagner Malhotra MD cc: Hodan Pham MD us Jaime Menezes MD OTHER Final Resu lt from Last 3 Months or Most Recently Relevant to Health Maintenance Additional Health Concerns Infection Onset Date Last Indicated MRSA Clearance Comment:Infection Control Note: Hx of MRSA, surveillance criteria met, no need for further testing or isolation precautions. Do not delete or resolve the Infection Flag. +MRSA 06/25/14 Left ear, left chest boils 06/25/2014 Insurance * Guarantor: [employer] Account Type Relation to Patient Date of Phone Billing Address [facility] [address] [place] [address] [place] [id number] Advance Directives * Full Code (Latest Code Status on File) Date Activated Date Inactivated Comments 01/07/2024 4:27 PM 01/11/2024 4:25 PM Question Answer Comments Code Status Discussion: Reviewed Preferences * Full Code Date Activated Date Inactivated Comments 12/27/2023 7:50 AM 12/27/2023 2:52 PM Question Answer Comments Code Status Discussion: Reviewed Preferences * Full Code Date Activated Date Inactivated Comments 12/26/2023 10:35 PM 12/27/2023 7:50 AM Per current records, admitting team documented full code. Nursing team had face to face communication also confirming patient desires full code this evening at time of this writing. Patient has historically consistently elected full code. Code status changed from DNR to full code. Question Answer Comments Code Status Discussion: Unable to Assess Preferences, Provider to review later * DNR Date Activated Date Inactivated Comments 12/26/2023 4:59 PM 12/26/2023 10:35 PM Question Answer Comments Code Status Discussion: Reviewed Preferences * Full Code Date Activated Date Inactivated Comments 12/17/2023 9:26 AM 12/17/2023 2:08 PM Question Answer Comments Code Status Discussion: Reviewed Preferences Care Teams Director Of First Impressions Relationship Specialty Start Date End Date Josh Brambila, TOÑO [facility] [place] [address] PCP - General Physician Brace Maker 02/16/24
--- OUTSIDE RECORDS SUMMARY | 2025-05-07 01:57 | XMS_ITS | Encounter Summary ---
Author Organization [facility] Address [address] [place] [address]. [place] [address] Care Team Providers Care Puller Over Name Role Phone None Primary Care Provider Unavailabl e Eugene Xiao MD Primary Care Provider [phone] Joshua Byrne MD Primary Care Provider [phone] Sandy Hua MD Primary Care Provider [phone] Hodan Pham MD Unavailable Unavailable Jatin Magallon MD Unavailable [phone] [facility] Primary Care Provider Encounter Details Date Type Department Care Team (Late st Contact Info) Description 02/18/[address] [address] Carrie Lu MD [address] [place] [address] [place] [address] HISTORY AND PHYSICAL (Primary Dx) Social History Tobacco Use Types Packs/Day Years Used Date Smoking Tobacco: Every Day Cigarettes Smokeless Tobacco: Never Comments:4 months ago, was o n patch till about 4 weeks Alcohol Use Standard Drinks/Week Comments Yes 0 (1 standard drink = 0.6 oz pur e alcohol) socially Sex and Gender Information Value Date Recorded Sex Assigned at Not on file 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 HISTORY OF PRESENT ILLNESS: T he patient is a 37 yo male, who complains of 1-day history of abdominal pain, emesis and recurrent na usea after undergoing ERCP earlier today. The patient has a history of right upper quadrant intermit tent abdominal pain during 12/10 for which he underwent laparoscopic cholecystectomy at [facility] on 02/05/03. He was found to have gallbladder polyps. Since his laparoscopic cholecystectomy the patient continued to have right upper quadrant pain and was referred to Dr. Arnold of Gastroenterology , who performed an upright 02/15/03. Abdominal CT scan done at that time was normal. The patient underwent ERCP today revealing a normal common bile duct and pancreatic duct with some air bubbles in the common bile duct, undergoing sphincterotomy. [facility], the patient has had 1 large emesis described as green and recurrent epigastric pain and nausea and hasn't been able to eat anything. He has been passing gas. He denies any diarrhea or constipation. The patient is brought to the Emergency Department. He was diagnosed with pancreatit is with an elevated lipase and was admitted for this. The patient denies any fevers. He has had lindy e chills. Denies any rash, nasal congestion, cough, sore throat, chest pain, lower extremity swellin g. He does report a history of night sweats for the past 6 months. ALLERGIES: No known drug allerg ies. ADMISSION MEDICATIONS: Lisinopril 10 mg qd. PAST MEDICAL HISTORY: Hypertension for the past year; status post right ankle arthroscopy 1998; status post direct laryngoscopy with pharyngeal biops y 01/06; status post laparoscopic cholecystectomy 02/05/03; history of tobacco abuse. SOCIAL HISTORY : The patient has smoked 1 ppd for greater than 20 years. He drinks minimal ETOH, denies any recent ingestion. The patient is and he has 2 children. He works as an excavator. FAMILY HISTORY : Mother of breast cancer; father is alive; he has 1 brother who is alive and well. PHYSICAL E XAMINATION: Vitals - temperature 99.2, pulse 70, respirations 20, blood pressure 142/98. In general , the patient is alert and oriented in mild distress. HEENT - EOMI, pupils equal, round, reactive to light; sclerae anicteric; posterior pharynx clear. NECK is soft, supple without lymphadenopathy. CH EST - lungs clear to auscultation bilaterally. CARDIOVASCULAR - regular rate and rhythm; normal S1 a nd a physiologic split S2; no murmur. ABDOMEN - soft, epigastric tenderness; no right upper quadrant or left upper quadrant tenderness or masses. He has hypoactive bowel sounds. EXTREMITIES reveal n ormal dorsalis pedis, femoral and radial pulses bilaterally; no ankle or foot swelling bilaterally. He has free range of motion times 4. NEUROLOGIC - cranial nerves II-XII grossly intact. LABORATORY: Amylase 228, lipase 1022, ALT 94, AST 60, total bilirubin; alkaline phosphatase, albumin are normal. CBC - white count 14.2, hemoglobin 16.6, platelets 201, 84% neutrophils, 14% lymphocytes. Sodium 1 41, potassium 4.7, chloride 107, bicarb 22, BUN 16, creatinine 0.7, glucose 138, calcium 9.3. Abdomi nal x-ray upright reveals a mildly dilated loop of small bowel with a possible air fluid level. ASSE SSMENT: 37 yo male status post ERCP earlier today with complications of pancreatitis. PLAN: We'll admit for IV fluid hydration, bowel rest and analgesics treatment. The patient will be made NPO. We will give Demerol 25-50 mg intravenously q4-6h as needed. He has 0-5 criteria . Will hold his Lisinopril until taking oral. [id number] CARRIE LU MD MT: Document: [id number] [place], [place] Name: RADHA ULLOA HISTORY AND PHYSCIAL Page 3 of 2 LCN: [id number] DSC: [place], [place] Name: MR#: : Admit Date: RADHA ULLOA [id number] 02/18/2003 Doct or: CARRIE LU MD HISTORY AND PHYSICAL Page 1 of 2 Electronically filed by Kanwal Orellana 02/25/2003 9:33 AM Quick Note by: CORDELIA SUERO on 03/04/03 at 9:45 am. Called medical records at [facility] and they will complete the record.LIGIA Reyna documented in this encounter Plan of Treatment Not on file documented as of this encounter Visit Diagnoses Diagnosis HISTORY AND PHYSICAL- Primary documented in this encounter Additional Health Concerns Infection Onset Date Last Indicated Resolved Time MRSA-Contact Isolation Comment:Left ear, left chest boils 06/25/2014 06/25/2014 documented as of this encounter Care Teams Puller Over Relationship Specialty Start Date End Date None PCP - General 04/24/04 03/31/13 Eugene Xiao MD [facility] [address] [place] [address] PCP - General Family Practice 04/01/13 08/21/13 Joshua Byrne MD [facility] [address] [place] [address] PCP - General Family Practice 08/22/13 09/16/14 Sandy Hua MD [facility] [address] [place] [address] PCP - General turpentiner 09/17/14 10/21/[address] [address] PCP - General 09/11/19 Hodan Pham MD [facility] [address] [place] [address] Family Practice 10/22/14 Jatin Magallon MD [facility] [address] [place] [address] Nephrology 10/22/14 documented as of this encounter
--- OUTSIDE RECORDS SUMMARY | 2025-05-07 01:57 | XMS_ITS | Clinical Summary ---
Author Organization [facility] Address [address] [place] [address] Care Team Providers Care Director Of Flight Operations Name Role Phone Hodan Pham MD Unavailable Unavailable Jatin Magallon MD Unavailable [phone] [facility] Primary Care Provider Allergies Active Allergy Reactions Criticality Noted Date Comments No Known Allergies 04/24/2004 Medications DULoxetine HCl (CYMBALTA PO) Take 60 mg by mouth daily Active METOPROLOL SUCCINATE PO Take 100 mg by mouth every evening Active CLONIDINE HCL PO Take 0.2 mg by mouth 2 times daily Active ATORVASTATIN CALCIUM PO Take 20 mg by mouth every evening Active gabapentin (NEURONTIN) 300 MG capsule Take 600 mg by mouth 2 times daily . Can take upto 10 capsules daily when needed. Currently taking 2 caps BID. Active lisinopril-hydr ochlorothiazide (PRINZIDE,ZESTO RETIC) 20-25 MG per tablet Take 1 tablet by mouth daily Active naproxen sodium (ALEVE) 220 MG tablet Take 220 mg by mouth 2 times daily as needed for moderate pain Active hydrALAZINE (APRESOLINE) 50 MG tabletIndicatio ns:HTN (hypertension) Take 2 tablets (100 mg) by mouth 3 times daily Dose increase from previous 120 tablet 4 Active polyethylene glycol (MIRALAX) powderIndicatio ns:Constipation Take 17 g by mouth daily Take while using oxycodone to prevent constipation 238 g 1 08/19/201 4 Active SPIRONOLACTONE POIndications:H ypertension Take 25 mg by mouth 2 times daily Active oxyCODONE (ROXICODONE) 5 MG tablet Take 1 tablet (5 mg) by mouth every 6 hours as needed for pain 8 tablet 0 Active Active Problems Problem Noted Date Diagnosed Date Essential hypertension 09/17/2014 Overview (08/07/2015): updating diagnosis code for icd10 cutover Cellulitis, face 06/20/2014 Hemochromatosis 05/07/2004 Overview (08/07/2013): Problem list name updated by automated process. Provider to review and confirm Problem list name updated by automated process. Provider to review and confirm Family History Medical History Relation Comments Hypertension Father Breast Cancer Mother AGE 40 AT DX, DI ED AT 54 Relation Status Comments Father Mother Social History Tobacco Use Types Packs/Day Years Used Date Smoking Tobacco: Every Day Cigarettes Smokeless Tobacco: Never Comments:4 months ago, was o n patch till about 4 weeks Alcohol Use Standard Drinks/Week Comments Yes 0 (1 standard drink = 0.6 oz pur e alcohol) socially Adolescent Education Answer Date Record ed Getting School Help Needed Not on file 08/14 Sex and Gender Information Value Date Recorded Sex Assigned at Not on file 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 Gender Identity Not on file Sexual Orientation Not on file 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 Not on file Not on file Not on file Last Filed Vital Signs Vital Sign Reading Time Taken Comments Blood Pressure 160/94 08/04/2020 3:00 PM CDT Pulse 67 08/04/2020 3:00 PM CDT Temperature 36.7 C (98 F) 08/04/2020 10:47 AM CDT Respiratory Rate 16 08/04/2020 3:48 PM CDT Oxygen Saturation 98% 08/04/2020 3:48 PM CDT Inhaled Oxygen Concentration - - Weight 92 kg (202 lb 13.2 oz) 09/11/2019 12:00 P M ICT SECURITY SPECIALIST Height 167.6 cm (5' 6) 09/11/2019 12:00 PM ICT SECURITY SPECIALIST Body Mass Index 32.74 09/11/2019 12:00 PM ICT SECURITY SPECIALIST Plan of Treatment Not on file Additional Health Concerns Infection Onset Date Last Indicated MRSA-Contact Isolation Comment:Left ear, left chest boils 06/25/2014 06/25/2014 Insurance [place] Member Subscriber Plan / Payer (Ef fective 2017-Present) Name:Alex Desai Suki Relation to Subscriber:Self Name:Alex Desai Payer ID:[id number] (NAIC) Type:Indemnity Address: [place] [id number] [place] Advance Directives For more information, please contact: [phone] * Full Code (Latest Code Status on File) Date Activated Date Inactivated Comments 06/20/2014 9:13 PM 06/26/2014 6:36 PM Care Teams Director Of Flight Operations Relationship Specialty Start Date End Date [facility], [address] [address] PCP - General 09/11/19 Hodan Pham MD Family Practice 10/22/14 Jatin Magallon MD [facility] [address] [place] [address] Nephrology 10/22/14
--- OUTSIDE RECORDS SUMMARY | 2025-05-07 01:57 | XMS_ITS | Clinical Summary ---
Author Organization [facility] Address [address], [place] [address] Phone Care Team Providers Care Vpk Teacher Name Role Phone Unavailable Primary Care Provider Unavailabl e Medications spironolactone (ALDACTONE) 50 MG tablet One by mouth twice day 3 09/08/2015 Active gabapentin (NEURONTIN) 300 MG capsule 1 po qday 09/05/2014 Active cloNIDine (CATAPRES) 0.2 MG tablet one by mouth twice daily 10/17/2014 Active vancomycin (VANCOCIN) 125 MG capsule Tapering dose, 4 tablets daily now 11/12/2014 Active hydrALAZINE (APRESOLINE) 50 MG tablet 1 po tid 0 09/05/2014 Active lisinopril (PRINIVIL,ZESTR IL) 20 MG tablet 1 po qday 09/05/2014 Active DULoxetine (CYMBALTA) [address] capsule 1 po qday 09/05/2014 Activ e metoprolol succinate XL (TOPROL-XL) 100 MG 24 hr tablet 1 po qday 09/05/2014 Act james Active Problems Problem Noted Date Diagnosed Date Hyperaldosteronism 10/17/2014 Overview (09/15/2019): Converted unresolved ICD9, potential mismatch. Essential (primary) hypertension 09/05/2014 Other hemochromatosis 09/05/2014 Overview (09/15/2019): Converted unresolved ICD9, potential mismatch. 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 Mononeuritis of unspecified site 09/05/2014 Overview (09/15/2019): Converted unresolved ICD9, potential mismatch. Social History Tobacco Use Types Packs/Day Years Used Date Smoking Tobacco: Never Assessed Sex and Gender Information Value Date Recorded Sex Assigned at Not on file Legal Sex Male 4:29 PM MDT Gender Identity Not on file Sexual Orientation Not on file Last Filed Vital Signs Vital Sign Reading Time Taken Comments Blood Pressure 165/105 11/12/2014 12:01 AM CLOUD SOFTWARE ENGINEER Sitting, Right Pulse 63 11/12/2014 12:01 AM CLOUD SOFTWARE ENGINEER Temperature 36.5 C (97.7 F) 10/17/2014 12:01 AM CLOUD SOFTWARE ENGINEER Respiratory Rate 20 10/17/2014 12:0 1 AM CLOUD SOFTWARE ENGINEER Oxygen Saturation - - Inhaled Oxygen Concentration - - Weight 90.2 kg (198 lb 12.8 oz) 11/12/2014 12:01 AM CLOUD SOFTWARE ENGINEER Height 167.6 cm (5' 6) 11/12/2014 12:0 1 AM CLOUD SOFTWARE ENGINEER Body Mass Index 32.09 11/12/2014 12:01 AM CLOUD SOFTWARE ENGINEER Plan of Treatment Not on file Insurance PM INTERFACED INSURANCE
== END 2025-05-06 08:59 | disposition home or self-care (01) ==
LOC: CT 08:59
PROVIDERS: PCP Physician Assistant Medical; Visit Provider Family Medicine
DX: Z72.0 Tobacco use (principal); Z12.2 Encounter for screening for malignant neoplasm of respiratory organs; R91.8 Other nonspecific abnormal finding of lung field
CPT/HCPCS: 71271

== ENCOUNTER 2025-06-16 03:55 | Emergency (ER) | payer OTHER, SELFPAY ==
--- OUTSIDE RECORDS SUMMARY | 2025-06-16 03:57 | XMS_ITS | Clinical Summary ---
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 Gender Identity Not on file Sexual Orientation [...] lb 13.2 oz) 09/11/2019 12:00 P M SENIOR SALES EXECUTIVE Height 167.6 cm (5' 6) 09/11/2019 12:00 PM SENIOR SALES EXECUTIVE Body Mass Index 32.74 09/11/2019 12:00 PM SENIOR SALES EXECUTIVE Plan of Treatment Not on file Additional Health Concerns Infection Onset Date Last Indicated MRSA-Contact Isolation Comment:Left ear, left chest boils 06/25/2014 06/25/2014 Insurance [place] Member Subscriber Plan / Payer (Ef fective 2017-Present) Name:Alex Desai Suki Relation to Subscriber:Self Name:Alex Desai Payer ID:[id number] (NAIC) Type:Indemnity Address: [place] [id number] [place] Advance Directives For more information, please contact: [phone] * Full Code (Latest Code Status on File) Date Activated Date Inactivated Comments 06/20/2014 9:13 PM 06/26/2014 6:36 PM Care Teams Digital Sales Executive Relationship Specialty Start Date End Date [facility], [address] [address] PCP - General 09/11/19 Hodan Pham MD Family Practice 10/22/14 Jatin Magallon MD [facility] [address] [place] [address] Nephrology 10/22/14
--- OUTSIDE RECORDS SUMMARY | 2025-06-16 03:57 | XMS_ITS | Clinical Summary ---
Author Organization [facility] Address [address] [address] Phone Care Team Providers Care Event Organizer Name Role Phone Unavailable Primary Care Provider [...] Comments Blood Pressure 165/105 11/12/2014 12:01 AM MATERIAL HANDLER FLOORPERSON Sitting, Right Pulse 63 11/12/2014 12:01 AM MATERIAL HANDLER FLOORPERSON Temperature 36.5 C (97.7 F) 10/17/2014 12:01 AM MATERIAL HANDLER FLOORPERSON Respiratory Rate 20 10/17/2014 12:0 1 AM MATERIAL HANDLER FLOORPERSON Oxygen Saturation - - Inhaled Oxygen Concentration - - Weight 90.2 kg (198 lb 12.8 oz) 11/12/2014 12:01 AM MATERIAL HANDLER FLOORPERSON Height 167.6 cm (5' 6) 11/12/2014 12:0 1 AM MATERIAL HANDLER FLOORPERSON Body Mass Index 32.09 11/12/2014 12:01 AM MATERIAL HANDLER FLOORPERSON Plan of Treatment Not on file Insurance PM INTERFACED INSURANCE
--- OUTSIDE RECORDS SUMMARY | 2025-06-16 03:57 | XMS_ITS | Encounter Summary ---
Author Organization [facility] Address [address] [place] [address]. [place] [address] Care Team Providers Care Grant Coordinator Name Role Phone None Primary Care Provider Unavailabl e Eugene Xiao MD Primary Care Provider [phone] Joshua Byrne MD Primary Care Provider [phone] Sandy Hua MD Primary Care Provider [phone] Hodan Pham MD Unavailable Unavailable Jatin Magallon MD Unavailable [phone] [facility] Primary Care Provider Encounter Details Date Type Department Care Team (Late st Contact Info) Description 02/18/[address] [address] Carrie Lu MD [address] [place] [address] [address], [place] [address] HISTORY AND PHYSICAL (Primary Dx) [...] on file Legal 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 HISTORY OF PRESENT ILLNESS: T he patient is a 37 yo male, who complains of 1-day history of abdominal pain, emesis and recurrent na usea after undergoing ERCP earlier today. The patient has a history of right upper quadrant intermit tent abdominal pain during 12/10 for which he underwent laparoscopic cholecystectomy at [facility] on 02/05/03. He was found to have [...] bile duct, undergoing sphincterotomy. Since the procedure [facility] this morning, the patient has had 1 [...] oral. [id number] CARRIE LU MD MT: Document: [id number] [place], [place] Name: RADHA ULLOA HISTORY AND PHYSCIAL Page 3 of 2 LCN: [id number] DSC: [place], [place] Name: MR#: : Admit Date: RADHA ULLOA [id number] 1965 02/18/2003 Doct or: CARRIE LU MD [...] documented as of this encounter Care Teams Grant Coordinator Relationship Specialty Start Date End Date None PCP - General 04/24/04 03/31/13 Eugene Xiao MD [facility] [address] [place] [address] PCP - General Family Practice 04/01/13 08/21/13 Joshua Byrne MD [facility] [address] [place] [address] PCP - General Family Practice 08/22/13 09/16/14 Sandy Hua MD [facility] [address] [place] [address] PCP - General cloth piecer 09/17/14 10/21/[address] [address] PCP - General 09/11/19 Hodan Pham MD [facility] [address] [place] [address] Family Practice 10/22/14 Jatin Magallon MD [facility] [address] [address] Nephrology 10/22/14 documented as of this encounter
--- OUTSIDE RECORDS SUMMARY | 2025-06-16 03:57 | XMS_ITS | Clinical Summary ---
Author Organization [facility] Address [address] [place] [address] Care Team Providers Care Santa'S Helper Name Role Phone Josh Brambila PA-C Primary Care Provider [phone] Allergies No known active allergies Medications DULoxetine [...] coronary stent placement,Mendez ry artery disease involving table mountain coronary artery without angina pectoris, unspecified whether table mountain or transplanted heart Take 1 Tablet (81 mg) by mouth or nasogastric tube once daily. Take once daily by mouth indefinitely 90 Tablet 03/05/20 25 Active nitroglycerin 0.4 mg sublingual tabletIndication s:S/P drug eluting coronary stent placement,Mendez ry artery disease involving table mountain coronary artery without angina pectoris, unspecified whether table mountain or transplanted heart Place 1 Tablet (0.4 mg) under the tongue every 5 minutes if needed for Chest pain 1st choice (Hold if SBP less than 90 mmHg). Up to 3 tablets in 15 minutes. 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 Provider to review and confirm Social History Tobacco Use Types Packs/Day Years [...] on file Legal Sex Male 6:18 AM CLASSIFICATION INSPECTOR Gender Identity Not on file Sexual Orientation Not on file Obstetrics History Last Filed Vital Signs Vital Sign Reading Time Taken Comments Blood Pressure 159/99 03/05/2025 9:29 AM CDT Pulse 84 03/05/2025 9:29 AM CDT Temperature 36.5 C (97.7 F) 01/11/2024 9:00 AM CLASSIFICATION INSPECTOR Respiratory Rate 19 01/11/2024 9:00 AM CLASSIFICATION INSPECTOR Oxygen Saturation 95% 03/05/2025 9:29 AM CDT Inhaled Oxygen Concentration - - Weight 101 kg (222 lb 9.6 oz) 03/05/2025 9:29 AM CDT Height 165.1 cm (5' 5) 03/05/2025 9:29 AM CDT Body Mass Index 37.04 03/05/2025 9:29 AM CDT Plan of Treatment Health Maintenance Due Date Last Done Comments Tetanus booster 1974 Depression screening for age 12+ 1975 HIV for age 15-65 1978 Hepatitis C screening for age 18-79 1981 Pneumococcal series for age 50+ (1 of 2 - PCV) 1982 Zoster (shingles) series for age 50+ (1 of 2) 2013 RSV vaccine for adults or (1 - Risk 60-74 years 1-dose series) 2023 COVID-19 vaccine series ( season) 2024 10/27/2021, 02/14/2021, 01/24/2021 Influenza Vaccine (#1) 2025 BMI (ht and wt on same day) for age 18+ 03/05/2026 03/05/2025, 08/17/2024, 03/21/2024, Additional history exists Colonoscopy through age 75 05/28/2029 05/28/2019 Lipids for age 45-75 03/05/2030 03/05/2025, 03/21/2024, 01/17/2024, Additional history exists Hepatitis B series for 19+ Aged Out N o longer eligible based on patient's age to complete this topic Procedures Procedure Name Priority Date/Time Associated Diagnosis Comments LIPID PANEL W REFLEX MEASURED LDL Routine 03/05/2025 10:31 AM CDT Dyslipidemia 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, unspecified whether table [place] or transplanted heart SCAN-COLONOSCOPY 05/28/2019 2:00 PM CDT from Last 3 Months or Most Recently Relevant to Health Maintenance Results * (ABNORMAL) LIPID PANEL W REFLEX MEASURED LDL (03/05/2025 10:31 AM CDT) CHOLESTEROL,TOTAL 191 100 - 199 mg/dL 03/05/2025 11:18 AM CDT [facility] Comment: Cholesterol, Total Reference Ranges Desirable <200 mg/dL Borderline 200-239 mg/dL High >=240 mg/dL TRIGLYCERIDES 284(H) <150 mg/dL 03/05/2025 11:18 AM CDT [facility] HDL CHOLESTEROL 39(L) >40 mg/dL 11:18 AM CDT [facility] NON-HDL CHOLESTEROL 152(H) <145 mg/dl 03/05/2025 11:18 AM CDT [facility] CHOL/HDL RATIO 4.90(H) <4.50 03/05/2025 11:18 AM CDT [facility] LDL CHOLESTEROL 95 <=130 mg/dL 03/05/2025 11:18 AM CDT [facility] VLDL CHOLESTEROL 57(H) <=30 mg/dL 03/05/2025 11:18 AM CDT [facility] PROVIDER ORDERED STATUS FASTING 03/05/2025 11:18 AM CDT [facility] Blood BLOOD SPECIMEN / Unknown Venipuncture / Unknown 03/05/2025 10:31 AM CDT 03/05/2025 10:32 AM CDT us Georges GARCIA CHEMISTRY Final Res ult [facility] [address] [place] [address], * SCAN-COLONOSCOPY (05/28/2019 2:00 PM CDT) Narrative Procedure Note Jaime Menezes MD - 05/28/2019 1:11 PM CDT [facility] [address] [place] [address], [address], [place] [address] Patient Name: Alex Desai Gender: Male Exam Date: 05/28/2019 Visit Number: [id number] Age: 53 Years Date of : 1965 Attending MD: Jaime Menezes MD Medical Record#: [id number] Procedure: Colonoscopy Indications: Colorectal cancer screening Referring [...] Wagner Malhotra MD cc: Hodan Pham MD Jamie Menezes MD OTHER Final Resu lt from Last 3 Months or Most Recently Relevant to Health Maintenance Additional Health Concerns Infection Onset Date Last Indicated MRSA Clearance Comment:Infection Control Note: Hx of MRSA, surveillance criteria met, no need for further testing or isolation precautions. Do not delete or resolve the Infection Flag. +MRSA 06/25/14 Left ear, left chest boils 06/25/2014 Insurance [facility] * Guarantor: [employer] Account Type Relation to Patient Date of Phone Billing Address [facility] [address] [place] [address] Advance Directives * Full Code (Latest Code [...] Code Status Discussion: Reviewed Preferences Care Teams Santa'S Helper Relationship Specialty Start Date End Date Josh Brambila, TOÑO [address] [place] [address] PCP - General Physician Inspector Heating And Refrigeration 02/16/24
--- OUTSIDE RECORDS SUMMARY | 2025-06-16 03:57 | XMS_ITS | Patient Health Record ---
Author Organization [facility] Address [address] [place] [address] Care Team Providers Care Mechanical Technical Service Specialist Name Role Phone Marya Wagner Primary Care Provider MARCELA Jacobo Unavailable [phone] Reason For Referral No Information Medications Medication SIG (Take, Route, Fr equency, Duration) Notes Start Date End Date Status Lisinopril Active amLODIPine Besylate Active DULoxetine HCl Activ e Gabapentin Active Social History Tobacco Use: Social History Observation Description Date Details (start date - stop date) Current Smoker NA - NA Social History Tobacco Use: Social Info Question Answer Notes Tobacco use/smoking Are you a current smoker Problems Problem Type SNOMED Code ICD Code Onset Dates Problem Status W/U Status Risk Notes Problem Sensorineural hearing loss, bilateral (205003295) Bilateral sensorineural hearing loss (H90.3) Active confirmed Problem Sensation of plugged ear on right side (H93.8X1) Active confirmed Problem Sensorineural hearing loss of left ear (disorder) (8571205489) Sensorineural hearing loss (SNHL) of left ear with restricted hearing of right ear (H90.A22) Active confirmed Plan Of Treatment No Information Insurance Providers Payer Name Payer Address Payer Phone Subscriber Number Group Number Insured Name Patient Relationship to Insured Coverage Start Date Coverage End Date [employer] [place] [address] [address] [place] [address] [id number] Alex Desai Self - patient is the insured Medical (General) History Medical History History ICD Code HTN Surgical History Surgery Date(Month/Year) Ear tubes
[2025-06-16 04:16] VITALS: RESP 22; TEMP 36.9; O2SAT 98; BMI 33.3
--- NOTE | 2025-06-16 04:20 | ED_ITS ---
HPI - Abdominal Pain General Time Seen by Provider: 04:05 Date Seen: 06/16/25 Chief Complaint: Flank Pain Stated Complaint: right side pain Time Seen by Provider: 06/16/25 04:20 Source: patient and family Mode of arrival: ambulatory History of Present Illness HPI narrative: Alex is a 59-year-old male who presents to the emergency department for evaluation of right-sided pain. Patient reports that he woke up this morning around 1:00 a.m. with severe pain on his right side. Patient reports in feels as if he is being kicked by a horse. Patient reports constant pain with no aggravating or alleviating factors. Patient reports chills but denies any fever, chest pain, cough or cold-like symptoms. Patient reports some shortness of breath secondary to pain. Denies any dysuria, hematuria. Patient reports pain in his right side that goes to his right back as well as his right lower abdomen. No history of similar episodes of pain in the past. Patient reports history of cholecystectomy in the past. No medications prior to arrival. Related Data Home Medications ?Medication ?Instructions ?Recorded ?Confirmed aspirin 81 mg chewable tablet 1 tab PO DAILY 12/29/23 12/25/24 (Children's Aspirin) clopidogrel 75 mg tablet 75 mg PO DAILY 12/29/2312/08 nitroglycerin 0.4 mg sublingual mg sublingual 12/29/23 12/25/24 tablet acetaminophen 325 mg capsule 650 mg PO Q6H PRN 4 12/25/24 hydralazine 10 mg tablet 10 mg PO TID 01/16/24 carvedilol 3.125 mg tablet 3.125 mg PO BID 02/21/24 ezetimibe 10 mg tablet (Zetia) 10 mg PO QDAY 03/06/25 rosuvastatin 20 mg tablet 10 mg PO .COMPLEX 03/06/25 Previous Rx's ?Medication ?Instructions ?Recorded amlodipine 10 mg tablet 10 mg PO DAILY #90 tabs 08/07 11/29 albuterol sulfate 90 mcg/actuation 1 inh inhalation QI D PRN shortness 11/09/23 aerosol inhaler of breath or wheezing #8.5 g fabian spirometers and accessories #1 ea 11/17/23 syringe with needle, safety 3 mL #100 ea 01/11/24 22 gauge x 1 1/2 lisinopril 40 mg tablet 40 mg PO QDAY #90 tabs 06/22 furosemide 20 mg tablet 20 mg PO QAM #90 tabs duloxetine 60 mg capsule,delayed 60 mg PO QDAY #90 cap s 10/23/24 release gabapentin 300 mg capsule 300 mg PO TID 3 months #270 caps 10/24/24 potassium chloride 20 mEq 40 meq (2 x 20 mEq) PO QDAY 90 12/19/24 tablet,extended release days #180 tabs triamcinolone acetonide 0.1 % 1 applic topical BID #30 grams 12/25/24 topical cream Allergies Allergy/AdvReac Type Severity Reaction Status Date / Time No Known Allergies Allergy Unknown Verified 06/16/25 04:18 Review of Systems Narrative Past medical history, past surgical history, medications, allergies, family history, and social history were reviewed with the patient. No additional pertinent items. A medically appropriate review of systems was performed with pertinent positives and negatives noted in HPI, all other systems negative. [facility] Medical History (Updated 06/16/25 @ 06:00 by Veronika Ewing MD) Swelling ?R60.9 - Edema, unspecified (ICD-10) Swimmer's ear, bilateral ?H60.333 - Swimmer's ear, bilateral (ICD-10) Confusion ?R41.0 - Disorientation, unspecified (ICD-10) Methicillin resistant Staphylococcus aureus infection (07/16/10) ?A49.02 - Methicillin resistant Staphylococcus aureus infection, unspecified site (ICD-10) History of fracture (2004) ?Z87.81 - Personal history of (healed) traumatic fracture (ICD-10) Diverticulosis of intestine ?K57.90 - Diverticulosis of intestine, part unspecified, without perforation or abscess without bleeding (ICD-10) Surgical History Status post cholecystectomy ?Z90.49 - Acquired absence of other specified parts of digestive tract (ICD- 10) History of endoscopy (03/2009) ?Z98.890 - Other specified postprocedural states (ICD-10) History of colonoscopy ?Z98.890 - Other specified postprocedural states (ICD-10) History of arthroscopy (1998) ?Z98.890 - Other specified postprocedural states (ICD-10) Social History (Updated 11/10/23 @ 00:55 by Kyle Cai MD) Smoking Status: Former smoker What tobacco products do you use: cigarettes Smoking packs per day: 1 Smoking cigarettes per day: 20.0 Years smoked: 47 Smoking pack-years: 47.00 Smoking quit date/years: <= 15 years ago Do you use any of these nicotine containing products: Smokeless Tobacco Second hand tobacco smoke exposure: No How often do you have a drink containing alcohol: monthly or less How many standard drinks containing alcohol do you have on a typical day: 1 or 2 How often do you have six or more drinks on one occasion: Less than monthly AUDIT-C Alcohol total score: 2 Non-prescribed substance use: denies use service: No Exam Narrative: Exam Narrative: General: Afebrile, in distress secondary to pain HEENT: Normocephalic, atraumatic, conjunctiva normal. MMM Neck: non-tender, supple Cardio: regular rate. regular rhythm Resp: Normal work of breathing, no respiratory distress, lungs clear bilaterally, no wheezing, rhonchi, rales Chest/Back: no visual signs of trauma, no midline tenderness, no CVA tenderness Abdomen: soft, non distension,+ tenderness to palpation right lateral abdomen, right lower quadrant, no peritoneal signs Neuro: alert and fully oriented. CN II-XII grossly intact. Grossly normal strength and sensation in all extremities. MSK: no deformities. Normal range of motion Integumentary/Skin: no rash visualized, normal color Psych: normal affect, normal behavior Const: Vital Signs, click to edit/add: Vital Signs - 24 hr 06/16/25 04:16 Temperature 98.4 F Respiratory Rate 22 Pulse Oximetry 98 Oxygen Delivery Me thod Room Air Course Vital Signs Vital signs: Initial Vital Signs Temperature 98.4 F 06/16/25 04:16 Temperature Source Temporal Artery Scan 06/16/25 04:16 Respiratory Rate 22 06/16/25 04:16 Pulse Oximetry 98 06/16/25 04:16 Oxygen Delivery Method Room Air 06/16/25 04:16 Vital Signs Temperature 98.4 F 06/16/25 04:16 Respiratory Rate 22 06/16/25 04:16 Pulse Oximetry 98 06/16/25 04:16 Oxygen Delivery Method Room Air 06/16/25 04:16 Temperature 98.4 F 06/16/25 04:16 Respiratory Rate 22 06/16/25 04:16 Pulse Oximetry 98 06/16/25 04:16 Oxygen Delivery Method Room Air 06/16/25 04:16 Medications Administered Medications: Generic Name Dose Route Start Last Admin Trade Name Freq PRN Reason Stop Dose Admin Hydromorphone HCl 0.5 mg 06/16/25 05:54 06/16/25 05:58 Hydromorphone 0.5 Mg/0.5 Ml Inj IVP 06/16/25 05:55 0.5 mg ONCE ONE Administration Discontinued Medications Generic Name Dose Route Start Last Admin Trade Name Freq PRN Reason Stop Dose Admin Hydromorphone HCl 0.5 mg 06/16/25 04:29 06/16/25 04:45 Hydromorphone 0.5 Mg/0.5 Ml Inj IVP 06/16/25 04:30 0.5 mg ONCE ONE Administration Sodium Chloride 1,000 mls @ 1,000 mls/hr 06/16/25 04:30 06/16/25 05:00 0.9 % Sodium Chloride 1000 Ml IV 06/16/25 05:29 1,000 mls/hr .Q1H SPENCER Administration MDM - Abdominal Pain MDM Narrative Medical decision making narrative: Alex is a 59-year-old male who presents to the emergency department for evaluation of right-sided pain. Upon arrival patient is nontoxic appearing, afebrile, in distress secondary to pain. Differential diagnosis includes but is not limited to nephrolithiasis versus pyelonephritis versus cystitis versus appendicitis versus retained stone versus musculoskeletal among others. Upon arrival patient was treated with IV Dilaudid for pain, 1 L IV fluid bolus. Comprehensive labs, urinalysis, CT imaging performed. I reviewed urinalysis which is unremarkable with no evidence of acute infection, trace blood. Comprehensive labs remarkable for leukocytosis with white blood cell count 15.13, hemoglobin 14.2 potassium slightly low at 3.2, creatinine 1.5, no transaminitis, normal lipase. I personally reviewed interpreted CT scan abdomen pelvis which demonstrates acute uncomplicated sigmoid diverticulitis - the sigmoid is redone and the loop of the sigmoid fat is inflamed in the right lower quadrant. I discussed results with patient and . On re-evaluation patient does report some improvement of symptoms after IV fluids, IV medications. I discussed results and considered outpatient management versus inpatient management. Overall patient is nontoxic appearing, afebrile, CT with findings of uncomplicated diverticulitis. Patient would prefer to go home which I think is reasonable. Plan for discharge home with a course of Augmentin, Tylenol, Percocet, soft/liquid diet and slowly advance as tolerated. Encourage close outpatient follow-up and strict return precautions discussed if high fever, severe abdominal pain, persistent vomiting, worsening symptoms. Patient and spouse understand agrees the plan. Medical Records Attestation: I reviewed the patient's medical records. Lab Data Attestation: I reviewed the patient's lab results. Labs: Lab Results 06/16/25 06/16/25 Range/Units 04:05 04:45 WBC 15.13 H (4.50-11.00) K/uL RBC 4.11 L (4.30-5.90) m/uL Hgb 14.2 (13.5-17.5) gm/dL Hct 39.0 (37.0-53.0) % MCV 95 (80-100) fL MCH 35 H (26-34) pg MCHC 36 (32-36) gm/dL RDW Coeff of Annelise 11.9 (11.5-15.5) % Plt Count 216 (140-440) K/uL Neut % (Auto) 73.7 H (42.0-72.0) % Lymph % (Auto) 9.8 L (20-44) % Holt % (Auto) 12.6 H (0.0-11.0) % Eos % (Auto) 2.5 (0.0-7.0) % Baso % (Auto) 0.3 (0.0-3.0) % Neut # (Auto) 11.20 H (1.7-7.0) K/uL Lymph # (Auto) 1.50 (0.90-2.90) K/uL Holt # (Auto) 1.90 H (0.00-0.90) K/UL Eos # (Auto) 0.40 (0.00-0.50) K/uL Baso # (Auto) 0.00 (0.00-0.30) K/uL Abs Immat Gran (auto) 0.20 (0.00-0.30) K/uL Imm/Tot Granulo (auto) 1.1 % Sodium 137 (135-149) mmol/L Potassium 3.2 L (3.6-5.1) mmol/L Chloride 104 (96-114) mmol/L Carbon Dioxide 28 (20-32) mmol/L Anion Gap 5 L (7-15) mEq/L BUN 32 H (7-30) mg/dL Creatinine 1.5 (0.5-1.5) mg/dL Estimated Creat Clear 44.99 Estimated GFR 53 ml/min Glucose 93 (60-115) mg/dL Calcium 9.1 (8.4-10.6) mg/dL Total Bilirubin 0.6 (0.1-1.5) mg/dL AST 25 (12-35) U/L ALT 21 (4-50) U/L Alkaline Phosphatase 85 (40-150) U/L Total Protein 6.8 (6.0-8.3) g/dL Albumin 4.0 (3.3-5.0) g/dL Lipase 152 (23-300) U/L Urine Color Yellow (Yellow) Urine Appearance Clear (Clear) Urine pH 6.5 (5.0-8.5) Ur Specific Ebro 1.015 (1.000-1.030) Urine Protein Negative (Negative) Urine Glucose (UA) Negative (Negative) Urine Ketones Negative (Negative) Urine Blood Trace-intact A (Negative) Urine Nitrite Negative (Negative) Urine Bilirubin Negative (Negative) Urine Urobilinogen 0.2 (0.2-1.0) Ur Leukocyte Esterase Negative (Negative) Urine RBC 0-2 (0-2) Urine WBC 0-2 (0-5) Ur Squamous Epith Cells None (None-Few) Urine Bacteria None (None) Discharge Plan Discharge Clinical Impression: Diverticulitis Patient Disposition: Home, Self-Care Condition: Stable Instructions: Diverticulitis (DC), Diverticulitis Diet (ED) Additional Instructions: Please follow-up with your primary care provider in the next 3-5 days for further evaluation and follow-up. Please call Tuesday morning to schedule an appointment. Please take antibiotics 3 times a day for the next 7 days. Please rest, drink plenty of fluids. Please eat a liquid/soft diet and slowly advance over the next 24-48 hours as tolerated. Please take Tylenol 1000 mg every 6 hours as needed for pain. Please take Percocet as needed for severe pain (please be aware that this also has 325 mg at Tylenol in it). Please return to the emergency department if he develops high fever, severe abdominal pain, persistent vomiting, new or worsening symptoms. It was a pleasure taking care of you today. We hope you feel better soon. Prescriptions: No Action amlodipine 10 mg tablet 10 mg PO DAILY Qty: 90 3RF aspirin [Children's Aspirin] 81 mg tablet,chewable 1 tab PO DAILY nitroglycerin 0.4 mg tablet, sublingual sublingual clopidogrel 75 mg tablet 75 mg PO DAILY carvedilol 3.125 mg tablet 3.125 mg PO BID Rx Instructions: must administer with a meal/food (DME) syringe with needle, safety 3 mL 22 gauge x 1 1/2 syringe See Rx Instructions .Route Qty: 100 1RF Rx Instructions: inject testosterone q2 weeks (DME) spirometers and accessories Device See Rx Instructions .Route Qty: 1 0RF Rx Instructions: As directed hydralazine 10 mg tablet 10 mg PO TID acetaminophen 325 mg capsule 650 mg PO Q6H PRN triamcinolone acetonide 0.1 % cream 1 applic topical BID Qty: 30 0RF albuterol sulfate 90 mcg/actuation HFA aerosol inhaler 1 inh inhalation QID PRN (Reason: shortness of breath or wheezing) Qty: 8.5 0RF lisinopril 40 mg tablet 40 mg PO QDAY Qty: 90 3RF furosemide 20 mg tablet 20 mg PO QAM Qty: 90 3RF duloxetine 60 mg capsule,delayed release(DR/EC) 60 mg PO QDAY Qty: 90 3RF gabapentin 300 mg capsule 300 mg PO TID 90 Days Qty: 270 3RF potassium chloride 20 mEq tablet extended release 40 meq PO QDAY 90 Days Qty: 180 1RF rosuvastatin 20 mg tablet 10 mg PO .COMPLEX Rx Instructions: 10 mg orally HS; ezetimibe [Zetia] 10 mg tablet 10 mg PO QDAY Follow Up/Referrals: Josh Brambila PA-C [Primary Care Provider, Family Practice] Stand Alone Forms: [facility] Info Instructions
[2025-06-16 04:25] LABS: Appearance Urine Clear (Clear)
--- NOTE | 2025-06-16 04:29 | CRLHL7_ITS ---
For Patients: As a result of the Century Cures Act, medical imaging exams and procedure reports are released immediately into your electronic medical record. You may view this report before your referring provider. If you have questions, please contact your health care provider. INDICATION: Right lower quadrant abdominal pain COMPARISON: A chest CT dated November 09, 2023 TECHNIQUE: CT examination of the abdomen and pelvis was performed without intravenous contrast. Thin section axial images were obtained from the lung bases through the pubic symphysis. Oral contrast was not administered. Please note that all CT scans at this facility use dose modulation, iterative reconstruction, and/or weight-based dosing when appropriate to reduce radiation dose to as low as reasonably achievable. FINDINGS: LUNG BASES: Minimal basilar atelectasis. Nodule in the left lower lobe measuring 6 millimeters. This is unchanged since November 09, 2023 and therefore likely benign. Heart size normal the lung bases. Vascular calcifications of the heart LIVER/BILIARY SYSTEM:The liver is normal in size and configuration given the lack of intravenous contrast. There is no visible focal mass and there is no intra- or extra hepatic biliary ductal dilatation.Absent gallbladder ADRENALS: The left adrenal gland is normal. Benign-appearing fat containing right adrenal nodule measuring 1.8 centimeters unchanged. KIDNEYS, URETERS and BLADDER:Renal calcifications are favored to be vascular rather than stones. Right renal cyst measuring 3.6 centimeters. No obstructive uropathy. The bladder appears normal. The prostate is enlarged. SPLEEN:Normal non-contrast appearance. PANCREAS: Normal non-contrast appearance. RETROPERITONEUM and MESENTERY: There is no mass, adenopathy or aortic aneurysm. Atherosclerotic vascular calcification GASTROINTESTINAL SYSTEM: Acute uncomplicated sigmoid diverticulitis. In this patient, the sigmoid is redundant and the loop of sigmoid that is inflamed as in the right lower quadrant. Diverticulosis elsewhere. No evidence of appendicitis. PELVIS: The prostate is enlarged. OSSEOUS STRUCTURES and ABDOMINAL WALL: Degenerative changes especially of the mid and lower lumbar spine.Very small fat containing umbilical hernia. OTHER: No free fluid or free air. IMPRESSION: 1. Acute uncomplicated sigmoid diverticulitis. In this patient, the sigmoid is redundant and the loop of sigmoid fat is inflamed as in the right lower quadrant. 2. Other incidental and nonacute appearing findings as discussed in the body of the report. Please review the comments regarding these findings. Please note that all CT scans at this facility use dose modulation, iterative reconstruction, and/or weight-based dosing when appropriate to reduce radiation dose to as low as reasonably achievable. Dictated by Jorge Marte MD @ 06/16/2025 5:32:14 AM (Electronically Signed)
[2025-06-16 05:14] LABS: Hematocrit 39.0 % (37.0-53.0); Hemoglobin* 14.2 gm/dL (13.5-17.5); Immature Granulocytes Pct Auto 1.1 %; Mean Corpuscular HGB Conc 36 gm/dL (32-36); Mean Corpuscular Hemoglobin 35 pg (26-34); Mean Corpuscular Volume 95 fL (80-100); RDW Coefficient of Variation % 11.9 % (11.5-15.5); Red Blood Count 4.11 m/uL (4.30-5.90); White Blood Count* 15.13 K/uL (4.50-11.00)
[2025-06-16 05:15] LABS: Albumin* 4.0 g/dL (3.3-5.0); Chloride* 104 mmol/L (96-114); Potassium* 3.2 mmol/L (3.6-5.1); Sodium* 137 mmol/L (135-149)
[2025-06-16 05:17] LABS: Blood Urea Nitrogen* 32 mg/dL (7-30); Creatinine* 1.5 mg/dL (0.5-1.5); Est. Creatinine Clearance* 44.99; Estimated Glomerular Filt Rate 53 ml/min
[2025-06-16 05:18] LABS: Alanine Aminotransferase* 21 U/L (4-50); Alkaline Phosphatase* 85 U/L (40-150); Anion Gap 5 mEq/L (7-15); Aspartate Amino Transferase* 25 U/L (12-35); Bilirubin Total* 0.6 mg/dL (0.1-1.5); Calcium* 9.1 mg/dL (8.4-10.6); Carbon Dioxide* 28 mmol/L (20-32); Glucose* 93 mg/dL (60-115); Total Protein* 6.8 g/dL (6.0-8.3)
[2025-06-16 05:19] LABS: Immature Granulocytes Abs Auto 0.20 K/uL (0.00-0.30); Lymphocytes Absolute Auto 1.50 K/uL (0.90-2.90); Slide Review Reflex No
[2025-06-16 06:26] VITALS: BP 157/91; PULSE 84; RESP 20; O2SAT 92
== END 2025-06-16 06:28 | disposition home or self-care (01) ==
PROVIDERS: Emergency Provider Emergency Medicine; PCP Physician Assistant Medical
DX: K57.92 Diverticulitis of intestine, part unspecified, without perforation or abscess without bleeding (principal); R10.9 Unspecified abdominal pain
CPT/HCPCS: 36415; 74176; 80053; 81001; 83690; 85025; 96361; 96374; 96376; 99284; 99285; J1171; J7030

== ENCOUNTER 2025-07-09 09:47 | Outpatient (CLI) | payer OTHER, SELFPAY | END 2025-07-09 09:48 | disposition home or self-care (01) | LOC: FRMREF 09:48 | PROVIDERS: PCP Physician Assistant Medical; Visit Provider Physician Assistant Medical | DX: Z12.5 Encounter for screening for malignant neoplasm of prostate (principal) | CPT/HCPCS: G0103 ==

== ENCOUNTER 2025-07-11 09:19 | Outpatient (CLI) | payer OTHER, SELFPAY | END 2025-07-11 09:20 | disposition home or self-care (01) | LOC: FRMREF 09:20 | PROVIDERS: PCP Physician Assistant Medical; Visit Provider Physician Assistant Medical | DX: K57.92 Diverticulitis of intestine, part unspecified, without perforation or abscess without bleeding (principal); E78.5 Hyperlipidemia, unspecified; I10 Essential (primary) hypertension | CPT/HCPCS: 80053; 80061 ==

== ENCOUNTER 2025-07-12 08:00 | Outpatient (CLI) | payer OTHER, SELFPAY | END 2025-07-12 08:01 | disposition home or self-care (01) | LOC: NFLDREF 07-17 10:34 | PROVIDERS: PCP Physician Assistant Medical; Referring Provider Physician Assistant Medical; Visit Provider Physician Assistant Medical | DX: R19.7 Diarrhea, unspecified (principal) | CPT/HCPCS: 87493 ==

== ENCOUNTER 2025-08-26 13:50 | Outpatient (CLI) | payer OTHER, SELFPAY ==
--- NOTE | 2025-08-26 15:22 | P.ANES_ITS ---
Anesthesia Charges Start Date/Time Anesthesia Start Date: 08/26/25 Anesthesia Start Time: 14:48 Stop Date/Time Anesthesia Stop Date: 08/26/25 Anesthesia Stop Time: 15:18 Coding CPT Codes CPT Codes: ANES LWR INTST NDSC NOS - [id number] ([id number]) P3 - PATIENT W/SEVERE SYS DISEASE, QK - GENERAL COUNSELOR 2-4 CNCRNT ANES PROC, QX - AUTOMATION SALES MANAGER SVC W/ MD MED DIRECTION
--- NOTE | 2025-08-26 15:22 | W.ANESCHARGE ---
Anesthesia Charges Start Date/Time Anesthesia Start Date: 08/26/25 Anesthesia Start Time: 14:48 Stop Date/Time Anesthesia Stop Date: 08/26/25 Anesthesia Stop Time: 15:18 Coding CPT Codes CPT Codes: ANES LWR INTST NDSC NOS - [id number] ([id number]) P3 - PATIENT W/SEVERE SYS DISEASE, QK - MENTAL HEALTH ASSISTANT 2-4 CNCRNT ANES PROC, QX - LEAD SYSTEMS DEVELOPER SVC W/ MD MED DIRECTION
--- NOTE | 2025-08-26 16:14 | P.ANES_ITS ---
Anesthesia Charges Start Date/Time Anesthesia Start Date: 08/26/25 Anesthesia Start Time: 14:48 Stop Date/Time Anesthesia Stop Date: 08/26/25 Anesthesia Stop Time: 15:18 Coding CPT Codes CPT Codes: ANES LWR INTST NDSC NOS - [id number] ([id number]) QK - INSURANCE MARKETING SPECIALIST 2-4 CNCRNT ANES PROC, QX - OCCUPATIONAL HEALTH SPECIALIST SVC W/ MD MED DIRECTION, P3 - PATIENT W/SEVERE SYS DISEASE
--- NOTE | 2025-08-26 16:14 | W.ANESCHARGE ---
Anesthesia Charges Start Date/Time Anesthesia Start Date: 08/26/25 Anesthesia Start Time: 14:48 Stop Date/Time Anesthesia Stop Date: 08/26/25 Anesthesia Stop Time: 15:18 Coding CPT Codes CPT Codes: ANES LWR INTST NDSC NOS - [id number] ([id number]) QK - ENTERPRISE SALES EXECUTIVE 2-4 CNCRNT ANES PROC, QX - REGISTERED DIET TECHNICIAN SVC W/ MD MED DIRECTION, P3 - PATIENT W/SEVERE SYS DISEASE
== END 2025-08-26 13:51 | disposition home or self-care (01) ==
LOC: OP CLINIC 13:50
PROVIDERS: PCP Physician Assistant Medical; Visit Provider Surgery
DX: Z12.11 Encounter for screening for malignant neoplasm of colon (principal); D12.2 Benign neoplasm of ascending colon; D12.4 Benign neoplasm of descending colon; K57.30 Diverticulosis of large intestine without perforation or abscess without bleeding; Z86.0100 Personal history of colon polyps, unspecified
CPT/HCPCS: 00811; 00812; 45385; 88305; J2704